=== PATIENT | female | born 1935 | race Caucasian/White ===

== ENCOUNTER 2017-08-15 14:59 | Outpatient (CLI) | payer MEDICARE, OTHER | END 2017-08-15 15:00 | disposition home or self-care (01) | LOC: BICMAMMO 14:59 | PROVIDERS: ATTEND Physician Assistant | DX: Z13.820 Encounter for screening for osteoporosis (principal); M81.0 Age-related osteoporosis without current pathological fracture | CPT/HCPCS: 77080 ==

== ENCOUNTER 2018-07-07 11:15 | Inpatient (IN) | payer MEDICARE, OTHER ==
[2018-07-07 12:20] LABS: Hemoglobin 12.1 g/dL (12.0-16.0); Mean Corpuscular HGB CONC 30.4 g/dL (32.0-36.0); Mean Corpuscular Volume 88.7 fL (78.0-98.0); Mean Platelet Volume 7.3 fL (7.4-10.4); Platelet Count 452 thou/uL (130-400); RBC Distribution Width 15.8 % (11.5-14.5); Red Blood Cell (RBC) Count 4.49 mill/uL (4.20-5.40); White Blood Cell (WBC) Count 26.9 thou/uL (4.8-10.8)
[2018-07-07 12:38] LABS: ALT (SGPT) 20 U/L (8-55); AST (SGOT) 22 U/L (5-34); Albumin 2.4 g/dL (3.4-4.8); Alkaline Phosphatase 148 U/L (40-150); Anion Gap 24 mmol/L (10-20); BUN (Urea Nitrogen) 104 mg/dL (9.8-20.1); Bilirubin, Total 0.5 mg/dL (0.2-1.2); Calc. Creatinine Clearance 0 mL/min (70-130); Calcium 8.3 mg/dL (7.8-10.44); Carbon Dioxide 14 mmol/L (23-31); Chloride 103 mmol/L (98-107); Estimated GFR-MDRD 24; Globulin 2.7 g/dL (2.4-3.5); Glucose 81 mg/dL (83-110); Potassium 5.4 mmol/L (3.5-5.1); Protein, Total 5.1 g/dL (6.0-8.3); Sodium 136 mmol/L (136-145)
[2018-07-07 12:51] LABS: Anisocytosis SLIGHT = 6-15 cells (100X) (0-5/hpf); Band 33 % (5-11); Hypochromia SLIGHT = 6-15 cells (100X) (0-5/hpf); Lymphocytes 1 % (21-51); MDiff Complete? YES; Monocytes 2 % (0-10); Neutrophil 64 % (42-75); Platelet Morphology Comment Appears Increased
[2018-07-07 14:10] LABS: Bilirubin Small (Negative); Blood, Urine Negative (Negative); Clarity CLEAR (Clear); Glucose, Urine (Dipstick) Negative (Negative); Leukocyte Negative (Negative); Nitrite Negative (Negative); Protein, Urine (Dipstick) Negative (Neg-Trace); Specific Gravity, Urine 1.019 (1.002-1.036); Urobilinogen 0.2 mg/dL (0.2-1.0)
--- NOTE | 2018-07-07 14:32 | RAD ---
CHEST 1 VIEW: Date: 07/07/18 HISTORY: Chest pain. Leukocytosis. FINDINGS: Cardiac silhouette is magnified by projection. Pulmonary vasculature is unremarkable. Mediastinum is midline with aortic calcification. Lungs are well inflated. No lobar consolidation or evidence of pne umothorax. IMPRESSION: 1. Atherosclerosis. 2. No active cardiopulmonary abnormalities are demonstrated. POS: [facility]
[2018-07-07] MEDS ORDERED: Ondansetron ODT 4 MG TAB PO PRN (16:45)
[2018-07-07] MEDS ORDERED: Acetaminophen 325 MG TAB PO PRN (16:45)
[2018-07-07] MEDS ORDERED: Bisacodyl 10 MG SUPP PR PRN (16:45)
[2018-07-07] MEDS ORDERED: Ondansetron PF 4 MG/2 ML Vial IVP PRN (16:45)
[2018-07-07] MEDS ORDERED: Sodium Chloride 0.9% 1,000 ML IV SCH (16:45)
[2018-07-07] MEDS ORDERED: Nystatin 100,000 Units/mL UDCUP SSW SCH (17:00)
[2018-07-07] MEDS ORDERED: Sodium Bicarbonate 75 MEQ in Sodium Chloride 0.45% 1,000 ML IV SCH (17:15)
--- NOTE | 2018-07-07 17:43 | HP ---
CHIEF COMPLAINT: Mouth sores and difficulty swallowing. HISTORY OF PRESENT ILLNESS: The patient is an 83-year-old female with past medical history significant for rheumatoid arthritis on methotrexate as well as hypothyroidism, who was brought in by relative due to difficulty eating or drinking associated with generalized weakness and inability to ambulate. The patient reportedly developed nausea, vomiting, and diarrhea since about 2 to 3 weeks, associated with poor oral intake and generalized weakness. In the last 1 week, the patient's symptoms of nausea, vomiting, and diarrhea have subsided, though she developed oral sores, which makes it impossible for her to eat. She had seen a physician at the Urgent Care and was prescribed fluconazole, which she had taken with some improvement, but she is still unable to eat or drink. In the last 24 hours, the patient got weaker and unable to get up, hence she was brought to the emergency room. She was noted to be very dry and dehydrated on presentation with tachycardia and was treated with IV fluid with some improvement. There is no history of fever. Chest pain, dysuria, hematuria, hematemesis, hematochezia, focal weakness, or leg swelling. PAST MEDICAL HISTORY: 1. Hypothyroidism. 2. Rheumatoid arthritis. PAST SURGICAL HISTORY: No prior surgery. SOCIAL HISTORY: The patient lives with the daughter. She does not smoke or drink alcohol or use recreational drugs. FAMILY HISTORY: Reviewed, but noncontributory. ALLERGIES: 1. AMOXICILLIN. 2. BACTRIM. 3. FLOXIN. 4. FOSAMAX. 5. LEVAQUIN. 6. MELOXICAM. 7. PENICILLIN G. 8. SULFACETAMIDE. 9. BENZATHINE. HOME MEDICATIONS: Include the followin. Methotrexate 2.5. 2. Hydrochloroquine. 3. Folic acid. 4. Levothyroxine. 5. Nexium. 6. Zetia. 7. Fenofibrate. 8. Aleve. 9. Aspirin. 10. Calcium plus vitamin D. 11. Fish oil. 12. CoQ10. 13. Multivitamin. REVIEW OF SYSTEMS: Twelve-point review of systems performed was negative, other than pertinent positives and negatives included in the history of present illness. PHYSICAL EXAMINATION: INITIAL VITAL SIGNS: On presentation showed BP 97/56, pulse 101, respiratory rate 18, temperature 97.7, and SpO2 of 95% on room air. Current vitals showed BP 115 /59, pulse 82, respiratory rate 14, SpO2 of 100% on room air. GENERAL: Clinically, ill-looking elderly female in no obvious distress. Afebrile, anicteric, acyanotic. HEENT: Normocephalic, atraumatic. Pupils are equal and reacting to light. Oral mucosa is dry. Lips are cracked. Tongue showed multiple shallow ulcers. NECK: Supple, nontender with full range of motion. CARDIOVASCULAR: Regular rhythm and rate with normal heart sounds 1 and 2. No murmur was appreciated. RESPIRATORY: Good air entry bilateral with no crackle or rhonchi or use of accessory muscles. GI: Abdomen is full, soft with mild diffuse tenderness. Bowel sound is normoactive. EXTREMITIES: Trace bilateral leg edema noted. Multiple hand deformities noted due to rheumatoid arthritis. SKIN: Dry, but appropriate for age with no obvious rash, petechiae, or erythema. NEUROLOGIC: Conscious, alert and oriented x3 with appropriate mental status. The patient has dysarthria and dysphonia due to dry mouth and ulcers. Cranial nerves 2 through 12 are intact. The patient moves all extremities. LABORATORY DATA: CBC showed WBC count of 26.9, hemoglobin of 12.1, platelet of 452. CMP showed sodium 136, potassium 5.4, chloride 103, CO2 of 14, anion gap 24, BUN 104, creatinine 1.99. Glucose 81, calcium 8.3, bilirubin 0.5, total protein 5.1 , albumin 2.4, globulin 2.7, alkaline phosphatase 148, AST 22, ALT 20. Initial troponin is 0.020. Urinalysis was unremarkable. EKG showed normal sinus rhythm with rate of 90. ST-segment was unremarkable, but there is T-wave inversion in inferior leads. ASSESSMENT: 1. Acute kidney injury: This most likely is due to severe dehydration from poor oral intake and increased GI output. 2. Hyperkalemia: Most likely due to acute kidney injury. 3. Anion gap metabolic acidosis. 4. Severe dehydration. 5. Multiple oral ulcers. 6. Oral thrush. 7. Physical deconditioning. 8. Moderate protein-calorie malnutrition. 9. Resolving acute gastroenteritis. 10. Hypothyroidism 11. Rheumatoid arthritis on plaquenil and methotrexate PLAN: 1. We will start the patient on IV fluid therapy with bicarb containing infusion. 2. We will start the patient on nystatin oral suspension. 3. We will also rule out acute myocardial infarction with serial troponin. 4. We will get serum magnesium and replete as needed. 5. Nutritional rehabilitation will be started with oral supplements. 6. DVT prophylaxis with Lovenox. 7. Diet as tolerated. 8. Code status full. 9. Daughter is the surrogate decision maker. 10. The patient is expected to stay in the hospital for more than 3 days. We will also consult Physical and Occupational Therapy. Job ID: [id number] [facility]
[2018-07-07] MEDS ORDERED: Famotidine 20 MG TAB ONE (21:09)
[2018-07-07] MEDS ORDERED: Nystatin 500,000 UNITS/5 ML UDCUP SSP SCH (23:30)
[2018-07-08 03:58] LABS: Hemoglobin 10.7 g/dL (12.0-16.0); Mean Corpuscular HGB CONC 29.7 g/dL (32.0-36.0); Mean Corpuscular Hemoglobin 26.5 pg (27.0-31.0); Mean Corpuscular Volume 89.3 fL (78.0-98.0); Mean Platelet Volume 7.2 fL (7.4-10.4); Platelet Count 380 thou/uL (130-400); Red Blood Cell (RBC) Count 4.02 mill/uL (4.20-5.40); White Blood Cell (WBC) Count 20.2 thou/uL (4.8-10.8)
[2018-07-08 04:12] LABS: ALT (SGPT) 17 U/L (8-55); AST (SGOT) 19 U/L (5-34); Albumin 2.1 g/dL (3.4-4.8); Alkaline Phosphatase 119 U/L (40-150); Anion Gap 20 mmol/L (10-20); BUN (Urea Nitrogen) 91 mg/dL (9.8-20.1); Bilirubin, Total 0.4 mg/dL (0.2-1.2); Calc. Creatinine Clearance 0 mL/min (70-130); Calcium 8.1 mg/dL (7.8-10.44); Carbon Dioxide 13 mmol/L (23-31); Chloride 113 mmol/L (98-107); Estimated GFR-MDRD 31; Glucose 79 mg/dL (83-110); Magnesium 2.3 mg/dL (1.6-2.6); Protein, Total 5.1 g/dL (6.0-8.3); Sodium 141 mmol/L (136-145)
[2018-07-08 05:22] LABS: Anisocytosis SLIGHT = 6-15 cells (100X) (0-5/hpf); Band 34 % (5-11); Hypochromia SLIGHT = 6-15 cells (100X) (0-5/hpf); Lymphocytes 5 % (21-51); MDiff Complete? YES; Monocytes 6 % (0-10); Neutrophil 55 % (42-75); Platelet Morphology Comment Appears Adequate
[2018-07-08] MEDS ORDERED: Sodium Bicarbonate 150 MEQ in Dextrose 5% in Water 1,000 ML IV SCH (06:45)
[2018-07-08] MEDS ORDERED: Enoxaparin Sodium 30 MG/0.3 ML SYRINGE ONE (09:55)
[2018-07-08 10:31] LABS: Creatinine, Urine 48.45 mg/dL (47-110); Sodium, Urine Less than 20 mmol/L (Not Available)
[2018-07-08] MEDS: Nystatin 500,000 UNITS/5 ML UDCUP SSW SCH (13:54)
[2018-07-08] MEDS: Famotidine 20 MG TAB PO SCH (13:54)
[2018-07-08] MEDS: Enoxaparin Sodium 30 MG/0.3 ML SYRINGE SC SCH (13:55)
[2018-07-08] MEDS: Nystatin 500,000 UNITS/5 ML UDCUP SSP SCH ×3 (13:56→21:00)
[2018-07-08] MEDS ORDERED: Metoprolol Tartrate 5 MG/5 ML VIAL IVP PRN (14:20)
[2018-07-08] MEDS ORDERED: Sodium Bicarbonate 50 MEQ in Sodium Chloride 0.45% 1,000 ML IV SCH (15:45)
--- NOTE | 2018-07-08 15:47 | PRG ---
DATE OF SERVICE: 07/08/2018 SUBJECTIVE: The patient is seen and examined at the bedside. She is doing significantly better. Her daughter is present in the room during my visit. She failed swallow studies done in the emergency room this morning. She does not have any nausea or vomiting. No diarrhea. She still has some abdominal pain. OBJECTIVE: VITAL SIGNS: Blood pressure is 138/65, pulse is 98, temperature is 98.4, respiratory rate 16, O2 saturation is 96% on room air. HEENT: Head is atraumatic and normocephalic. Eyes are sunk. Pupils are responding to light properly. Sclerae are nonicteric. Conjunctivae are somewhat palish. Oral mucosa is difficult to assess since she is barely able to open her mouth secondary to multiple oral and tongue ulcers. NECK: Supple. LUNGS: Clear. HEART: S1 and S2 normal. No S3. No S4. ABDOMEN: Tender to palpation in the lower parts of the abdomen and right upper quadrant. Bowel sounds are present. EXTREMITIES: No clubbing, cyanosis, or edema. NEUROLOGIC: She follows my commands. She moves her all four extremities, but she looks tired and exhausted. LABORATORY DATA: Labs showed white count of 20.2, hemoglobin 10.7, hematocrit 35.9, platelet count is 380, 34% of bands. Sodium of 141, potassium 5.0, chloride 113, CO2 of 13, BUN 91, creatinine 1.58. Total protein 5.1. Troponin I 0.02. Albumin 2.1. The rest of chemistry within normal limits. Urine creatinine 48.4. Urine sodium less than 20. IMPRESSION: 1. Acute gastroenteritis in the setting of immunocompromised patient. 2. Acute kidney injury. 3. Stomatitis, felt to be secondary to thrush. 4. Anion gap metabolic acidosis, most likely secondary to loss of bicarbonate with diarrhea. 5. Severe dehydration. 6. Physical deconditioning. 7. Hypothyroidism. 8. Rheumatoid arthritis, on methotrexate and Plaquenil. 9. Microbiology, no growth at 24 hours. DISCUSSION: The patient improved clinically since she got IV fluids. Her creatinine improved to 1.58 from 1.99 yesterday. She is still in metabolic acidosis, and her white count is still elevated at 20.2, although it is down from 26.9. She has still very elevated percentage of bands at 34. Continue on rehydration with addition of bicarb to replace her bicarb loss. We will get ID consult with Dr. Rizo. We will obtain CT of the abdomen and pelvis without IV contrast. We will continue nystatin, which is swish 4 times a day. We will continue Pepcid 20 mg twice a day IV piggy bag, and she failed her swallow studies. We will try to replace her fluids for now, and we will start her on PT and OT. Job ID: [id number]
--- NOTE | 2018-07-08 16:07 | CT ---
CT ABDOMEN AND PELVIS NONCONTRAST: Date: 07/08/18 HISTORY: Flank pain. FINDINGS: Each renal collecting system, ureter, and urinary bladder are decompressed without stone evident. Lack of contrast limits evaluation for other abnormalities. There is dense consolidation at the left posterior lung bases. Gallbladder is distended up to 10.2 cm. Stones are not visible on CT. There is prominent calcification throughout the arterial structures. Circumferential wall thickening of the en tirety of the colon with fluid layering throughout the mildly distended colon. At the left adnexa, a 3.9 cm cyst is present. Smaller cysts at the right adnexa. No free fluid is evident. IMPRESSION: 1. No CT evidence of urinary tract obstruction or calcification. 2. Pancolitis. Cause is not evident. Infectious? 3. Left ovarian cystic mass, 3.9 cm. 4. Consolidation at left posterior lung base. Pneumonitis versus atelectasis. 5. Atherosclerosis. POS: [facility]
[2018-07-08] MEDS ORDERED: Sodium Chloride 0.9% 10 ML ONE (16:27)
[2018-07-08] MEDS: MEROPENEM 1 GM/50 ML 1 GM in Premix Bag 1 BAG IVPB SCH (20:59)
[2018-07-08] MEDS ORDERED: Meropenem 1 GM in Sodium Chloride 0.9% 100 ML IVPB SCH (22:00)
[2018-07-09 01:33] LABS: Hemoglobin 9.7 g/dL (12.0-16.0); Mean Corpuscular HGB CONC 31.6 g/dL (32.0-36.0); Mean Corpuscular Hemoglobin 27.5 pg (27.0-31.0); Mean Corpuscular Volume 87.3 fL (78.0-98.0); Mean Platelet Volume 7.1 fL (7.4-10.4); Platelet Count 321 thou/uL (130-400); RBC Distribution Width 15.5 % (11.5-14.5); Red Blood Cell (RBC) Count 3.52 mill/uL (4.20-5.40); White Blood Cell (WBC) Count 13.7 thou/uL (4.8-10.8)
[2018-07-09 01:52] LABS: Band 17 % (5-11); Hypochromia SLIGHT = 6-15 cells (100X) (0-5/hpf); Lymphocytes 3 % (21-51); MDiff Complete? YES; Monocytes 14 % (0-10); Neutrophil 64 % (42-75); Platelet Morphology Comment Appears Adequate; Reactive Lymphocytes 2 % (0-10)
[2018-07-09 01:57] LABS: ALT (SGPT) 20 U/L (8-55); AST (SGOT) 20 U/L (5-34); Albumin 1.9 g/dL (3.4-4.8); Alkaline Phosphatase 98 U/L (40-150); Anion Gap 14 mmol/L (10-20); BUN (Urea Nitrogen) 63 mg/dL (9.8-20.1); Bilirubin, Total 0.5 mg/dL (0.2-1.2); Calc. Creatinine Clearance 38 mL/min (70-130); Calcium 7.9 mg/dL (7.8-10.44); Carbon Dioxide 23 mmol/L (23-31); Chloride 116 mmol/L (98-107); Estimated GFR-MDRD 59; Globulin 2.7 g/dL (2.4-3.5); Glucose 137 mg/dL (83-110); Potassium 3.9 mmol/L (3.5-5.1); Protein, Total 4.6 g/dL (6.0-8.3); Sodium 149 mmol/L (136-145)
[2018-07-09] MEDS: Dextrose 5% in Water 1,000 ML IV SCH ×2 (03:51→18:14)
[2018-07-09] MEDS: MEROPENEM 1 GM/50 ML 1 GM in Premix Bag 1 BAG IVPB SCH ×2 (03:51→13:36)
[2018-07-09] MEDS ORDERED: Digoxin 0.5 MG/2 ML AMP SLOW IVP SCH (08:30)
[2018-07-09] MEDS: Enoxaparin Sodium 30 MG/0.3 ML SYRINGE SC SCH (08:50)
[2018-07-09] MEDS: Pantoprazole 40 MG VIAL IVP SCH (08:50)
[2018-07-09] MEDS: Nystatin 500,000 UNITS/5 ML UDCUP SSP SCH (08:50)
--- NOTE | 2018-07-09 08:58 | RAD ---
CHEST 1 VIEW: HISTORY: Dysphagia. COMPARISON: Radiograph 07/07/2018. FINDINGS: Worsening left basilar airspace opacities. No pneumothorax. There is scaring in both lung apices. Extensive splenic artery calcifications. IMPRESSION: Left lower lobe airspace opacity concerning for infection. POS: [facility]
[2018-07-09] MEDS: Diltiazem 125 MG in Sodium Chloride 0.9% 100 ML IVPB SCH ×2 (09:42→09:50)
[2018-07-09] MEDS ORDERED: Diltiazem 125 MG in Sodium Chloride 0.9% 100 ML IVPB SCH ×2 (10:45→18:03)
[2018-07-09 11:33] LABS: Hemoglobin 10.2 g/dL (12.0-16.0); Mean Corpuscular Hemoglobin 26.7 pg (27.0-31.0); Mean Corpuscular Volume 86.1 fL (78.0-98.0); Mean Platelet Volume 7.7 fL (7.4-10.4); Platelet Count 336 thou/uL (130-400); RBC Distribution Width 15.6 % (11.5-14.5); Red Blood Cell (RBC) Count 3.82 mill/uL (4.20-5.40); White Blood Cell (WBC) Count 16.8 thou/uL (4.8-10.8)
[2018-07-09 11:41] LABS: Anion Gap 16 mmol/L (10-20); BUN (Urea Nitrogen) 59 mg/dL (9.8-20.1); Calc. Creatinine Clearance 42 mL/min (70-130); Calcium 7.6 mg/dL (7.8-10.44); Carbon Dioxide 21 mmol/L (23-31); Chloride 117 mmol/L (98-107); Estimated GFR-MDRD 65; Glucose 133 mg/dL (83-110); Potassium 4.4 mmol/L (3.5-5.1); Sodium 150 mmol/L (136-145)
[2018-07-09 12:07] LABS: Band 51 % (5-11); Hypochromia SLIGHT = 6-15 cells (100X) (0-5/hpf); Lymphocytes 6 % (21-51); MDiff Complete? YES; Metamyelocyte 1 % (0-0); Monocytes 3 % (0-10); Myelocyte 1 % (0-0); Neutrophil 37 % (42-75); Platelet Morphology Comment Appears Adequate; Polychromasia SLIGHT = 2-3 cells (100X) (0-2/hpf); Reactive Lymphocytes 1 % (0-10); Toxic Granulation SLIGHT; Vacuoles SLIGHT
--- NOTE | 2018-07-09 12:11 | CON ---
DATE OF CONSULTATION: PRIMARY CARE DOCTOR: Adi Mann MD PRIMARY MECHANICAL ENGINEERING TECHNICIAN: Maria G Adame MD REASON FOR CARDIOLOGY CONSULT: AFib with rapid ventricular response. HISTORY OF PRESENT ILLNESS: Ms. Rosenbaum is an 83-year-old female with a significant history of rheumatoid, osteoarthritis and hypothyroidism. Prior to this admission, the patient was very active. She could drive, do homemaking, and mowing yard outside. However, from June 22, she started having nausea, vomiting, and diarrhea. Nausea and vomiting had stopped the next day, however, she continued having diarrhea and could not hold the food and the fluids. She was getting more weaker. She saw Dr. Mann' PA at home on June 29. The patient was told that the patient's vital signs are stable. The patient was told that she had some stomach flu. However, on July 02, she started having blistering around her mouth, which extend to her throat within a couple of days. Since then, she could not eat or even drink due to pain in her mouth, so she went to [facility]. She was instructed to present to the emergency department for further evaluation and treatment. She was found to have a dehydration with low bicarb. Right now, she is on normal saline with bicarb with Protonix IV daily and nystatin 3 times a day with antibiotic. Around 6:30 this morning, the heart child monitor showed AFib with rapid ventricular response, heart rate went up to 180s to 190s, but she converted back to sinus rhythm around 8:30 before digoxin IV push was given. Prior to this admission or prior to the event of atrial fibrillation with rapid ventricular response this morning, the patient denies any chest pain, dizziness, lightheadedness, shortness of breath, discomfort of the chest, or any other cardiac complaint. According to the daughter, the patient never had a cardiac workup prior to this admission. PAST MEDICAL HISTORY: Hypothyroidism, rheumatoid arthritis, osteoarthritis. She follow up with Dr. Felix for the rheumatoid arthritis, she received steroid shot every 4 weeks. PAST SURGICAL HISTORY: She had a cataract surgery and fracture to the left foot long time ago. FAMILY HISTORY: There is no significant cardiac history in her family. SOCIAL HISTORY: She is a . She is living with her daughter. She denies smoking, EtOH, or illicit drug abuse. She drinks 2 cups of coffee a day and she drinks one large glass of water a day per daughter. Prior to this admission and prior to the nausea and diarrhea, she was very active and she usually is active on the advent, driving herself and mowing yard herself at home. ALLERGIES: PLEASE REFER TO THE PATIENT'S MEDICAL RECORD. HOME MEDICATIONS: 1. Plaquenil 200 mg twice a day. 2. Zetia 10 mg once a day. 3. Omeprazole 20 mg once a day. 4. Tylenol No. 3 one tablet every 6 hours as needed. 5. Coenzyme 100 mg once a day. 6. Wallback-3 of 1000 mg once a day. 7. Multivitamin once a day. 8. Cranberry 400 mg once a day. 9. Aspirin 81 mg once a day. 10. Aleve 220 mg twice a day as needed. 11. Fenofibrate 160 mg once a day. 12. Folic acid 1 mg once a day. 13. Levothyroxine 125 mcg once a day. 14. Calcium D3. REVIEW OF SYSTEMS: Twelve-point review of systems negative unless otherwise mentioned in the HPI. PHYSICAL EXAMINATION: VITAL SIGNS: Blood pressure 111/55, temperature 98.6, pulse is 70s to 80s with sinus rhythm, respiratory rate 16, and O2 sat 99% with room air. GENERAL: The patient is alert and oriented x4. The patient is really lethargic at this moment, but not in acute distress. HEENT: Normocephalic, atraumatic. Eyes; extraocular muscle movement intact. ENT and mouth; oral mucosa is dry around her mouth due to the infection. Nasal mucosa moist without lesion. NECK: Supple. Limited range of motion of the neck due to rheumatoid arthritis. RESPIRATORY: Clear to auscultate bilaterally, diminished at bases. CARDIOVASCULAR: At this moment, regular rate and rhythm. Normal S1, and S2. There are no S3 or S4. No significant murmur, hives, or thrill noted. 2+ pulses in bilateral upper and lower extremities. Mild edema to the right lower extremity. Carotid pulses are present without bruit or thrill noted. ABDOMEN: Soft, but tender to palpitate. Bowel sounds are present. SKIN: Warm and dry. No significant bruise, rash, or erythema noted. MUSCULOSKELETAL: The patient able to move all extremities, but however, the patient is really weak. PSYCHIATRIC: The patient's mood is appropriate, but so lethargic at this moment. NEUROLOGIC: The patient is alert and oriented x4, nonfocal. LABORATORY DATA: WBC is 13.7, hemoglobin 9.7, and hematocrit 30.8. Sodium of 149, potassium of 3.9, BUN 63, creatinine 0.91, AST 20, and ALT 20. Troponins 0.020 x2. UA is negative. A 12-lead EKG at the ER shows sinus rhythm with heart rate 90, no significant ST-segment change. T-wave inversion in lead II, lead III, and lead aVF and also V5 and V6. No previous EKG in the record to compare. The patient's chest x-ray shows left lower lobe airspace opacity concerning for infection. ASSESSMENT AND PLAN: 1. Atrial fibrillation with rapid ventricular response. At this moment, the patient was converted back to sinus rhythm. After 2 hours of atrial fibrillation with rapid ventricular response without Cardizem drip or digoxin IV push. She has beta- keyur IV push p.r.n. at this moment. She cannot tolerate p.o. at this moment due to the infection in her mouth, stomatitis. We would like to continue to monitor on the telemetry. At this moment, we would like to order echocardiogram for further evaluation. 2. Inferior T-wave inversion. We would like to continue to monitor on the telemetry at this moment. At this moment, the patient does not have any cardiac complaints. 3. Severe dehydration, which is managed by primary care doctor. 4. Hypothyroidism, which is managed by primary care doctor. 5. Acute gastroenteritis. The patient under contact isolation at this moment because of Clostridium difficile. 6. Severe stomatitis. She is on a medication, which is improving her symptom per daughter and managed by primary care doctor. Thank you for allowing the Cardiology Service to participate in the care of this patient. We will follow along the patient's care team and make further recommendations as appropriate. Job ID: [id number] [facility]
[2018-07-09] MEDS: Nystatin 500,000 UNITS/5 ML UDCUP SSW SCH ×3 (13:39→20:31)
--- NOTE | 2018-07-09 13:39 | CON ---
DATE OF CONSULTATION: 07/09/2018 INDICATION FOR CONSULTATION: This is an elderly 83-year-old female with dehydration, diarrhea, overall deconditioning, and atrial fibrillation with rapid ventricular response. HISTORY OF PRESENT ILLNESS: This is a very unfortunate 83-year-old female, who has had some diarrhea for over a week now. It actually started back at the end of May. She has been feeling on and off and she then developed thrush in the mouth and was unable to eat. She has been on medications for this, but this has finally started to get better, but she continued to have diarrhea. She became more dehydrated. She presented to an outpatient facility or to the urgent care center, was advised to be seen in the emergency room where she was seen, started on IV fluids, and was admitted due to significant dehydration and possible pneumonia. At this time, we were seeing her due to atrial fibrillation. She developed this in the hospital with rapid ventricular response. She has had no previous history of this that I am aware of. At this time, she denied any chest pain, but when she gets atrial fibrillation, she becomes very rapid with heart rate up to 150s to 160s, but she denied any chest pain and is actually relatively asymptomatic with the atrial fibrillation. PAST MEDICAL HISTORY: Significant for rheumatoid arthritis, hypothyroidism. She has been pretty healthy. She has been doing up and round and driving and taking care of her great grandkids and grandchildren up until she got sick with diarrhea. SOCIAL HISTORY: She continues to live with family. She has no history of alcohol or tobacco abuse. FAMILY HISTORY: Noncontributory. REVIEW OF SYSTEMS: Please refer to the notes dictated by my nurse practitioner. ALLERGIES: SHE HAS AN EXTENSIVE LIST. ALSO PLEASE REFER TO THOSE LISTED IN THE CHART. SHE IS ALLERGIC TO FLOXIN, BACTRIM, AMOXICILLIN, LEVAQUIN, FOSAMAX, MELOXICAM, PENICILLIN G, BENZATHINE, AND SULFACETAMIDE. MEDICATIONS: Prior to admission included: 1. Hydroxychloroquine. 2. Methotrexate. 3. Folic acid. 4. Levothyroxine. 5. Zetia. 6. Nexium. 7. Fenofibrate. 8. Aspirin. 9. Aleve. 10. Calcium plus vitamin D. 11. Fish oil. 12. CoQ10. 13. Multivitamins. REVIEW OF SYSTEMS: Her 12-point review of systems, please refer the notes dictated by the nurse practitioner. Also, family did tell me that she recently underwent a colonoscopy by Dr. Messer and was found to have, I believe, some small polyps. Previously, she had a test, which was unremarkable. PHYSICAL EXAMINATION: GENERAL: Reveals a very thin, emaciated-appearing female. She is alert and oriented however. VITAL SIGNS: Her blood pressure is 111/55, heart rate is anywhere between 90s to 180s, respiratory rate 16, O2 saturations 99% to 100% on room air. She is afebrile. HEENT: Shows the head to be normocephalic and atraumatic. NEC: Her carotid pulses are present. I did not hear any significant bruits. CHEST: Actually, she had decreased breath sounds. I do not hear any significant rales, rhonchi, or wheezing at this time. She does have occasional cough. GI: Very soft and slightly tender. Bowel sounds are hypoactive with minimal bowel sounds, but there was no tympany noted. CARDIOVASCULAR: Reveals irregular rhythm, somewhat tachycardic. EXTREMITIES: She had no significant lower extremity edema. She had minimal ankle edema on the right leg, but otherwise is unremarkable. NEUROLOGIC: The patient appears to be relatively intact for her age, but does appear to be significantly weak. SKIN: Warm and dry. DIAGNOSTIC DATA: EKG originally showed a normal sinus rhythm, but at that time shows atrial fibrillation with a rapid ventricular response. Her cardiac enzymes are unremarkable. LABORATORY DATA: Showed a WBC of 26,000 two days ago, has now decreased down to 20,000 and today was 13.7 with a hemoglobin of 9.7 and on admission, she was 12.1, most likely this was due to dehydration. She has continued to get IV fluids. Hematocrit was 30.8. She had 17 bands and previously had 33 bands on admission, appears to be septic, uncertain of the etiology of the diarrhea. Sodium was 149 , again indicative of her dehydration; chloride was 116; BUN was 63 with a creatinine 0.91 and on admission, it was 91 and 1.58 for the creatinine. Blood sugar is 137. Her albumin is low at 1.9. At this time, we will ask that she undergo some type of a catheter placement for the urine, so that we can obtain a stool specimen to determine whether or not, she has any C. diff or any other GI etiology for the diarrhea. From a cardiac standpoint, would advise we give her digoxin for the lowering of the heart rate and possibly add diltiazem if possible to control the heart rate with the atrial fibrillation. Once she has recovered from possible pneumonia or this infectious etiology from the diarrhea, then we can proceed with further workup for her. From a cardiac standpoint, we will obtain an echocardiogram for evaluation of the left ventricular systolic function as well as chamber dimensions. At this time, she is not a very good candidate for antiarrhythmics except for rate control at this time since she is going in and out of atrial fibrillation, we can always try perhaps low-dose, so we can try Multaq and see whether or not, she would tolerate this medication, but at this time, I would rather just rate control and continue her other medications if at all possible. Further recommendations will depend on the results of the echocardiogram and whether or not, she has any etiology also for infection and renal function. At this time, she appears to be more of an infectious etiology and the underlying problem will need to be addressed. ASSESSMENT AND PLAN: 1. Atrial fibrillation. We will control the heart rate. 2. Some type of diarrhea, probable infectious etiology and will need to be evaluated to determine the etiology of this. 3. Elevated WBC and bands compatible with probable sepsis or significant gastrointestinal etiology for infectious process. Overall, she actually does not appear to be septic, but will need to follow this very carefully. Job ID: [id number] [facility]
[2018-07-09] MEDS: metroNIDAZOLE 500 MG in Premix Bag 1 BAG IVPB SCH ×2 (14:35→21:47)
[2018-07-09] MEDS: Digoxin 0.5 MG/2 ML AMP SLOW IVP SCH ×2 (14:38→20:30)
[2018-07-09] MEDS ORDERED: Vancomycin HCl 25 MG/ML Oral PO SCH ×2 (15:00→17:00)
--- NOTE | 2018-07-09 16:36 | CON ---
DATE OF CONSULTATION: 07/09/2018 CHIEF COMPLAINT: Mouth ulcers, diarrhea, and severe weakness. HISTORY OF PRESENT ILLNESS: Ms. Rosenbaum is an 83-year-old woman who was previously healthy, living with her daughter and driving and taking care of herself. Around four weeks ago, she had an outpatient colonoscopy with a polyp removed. This was done due to a family history of colon cancer and prior history of personal colon polyps. Around two weeks ago, she developed onset of diarrhea. She was evaluated by primary care and felt to have an acute infectious, possibly viral gastroenteritis and no further intervention was performed at that point. She subsequently developed painful mouth ulcers and ongoing diarrhea. She went to primary care and our [facility] and was diagnosed with fungal thrush. She was treated with fluconazole. She took that for 3 days and the symptoms however continued. She went back to primary care and this time again, the tongue was noted to be swollen with ongoing ulcers and she was dehydrated and weak and she was sent to the emergency room for further care day before yesterday. She was noted to have elevated creatinine and severe dehydration. Her diarrhea had actually stopped for a few days prior to admission. She had one liquidy stool yesterday and one liquidy stool this morning. She has been on Plaquenil and methotrexate for rheumatoid arthritis. PAST MEDICAL HISTORY: Hypothyroidism, rheumatoid arthritis, colon polyps, and gastroesophageal reflux. FAMILY HISTORY: Positive for colon cancer. PAST SURGICAL HISTORY: Colonoscopy with polypectomy. SOCIAL HISTORY: No alcohol, tobacco, or drugs. She lives at home with her daughter and was independent and active prior to hospitalization. ALLERGIES: AMOXICILLIN, BACTRIM, FOSAMAX, LEVOFLOXACIN, MELOXICAM, PENICILLIN, SULFACETAMIDE, AND BENZATHINE. MEDICATIONS: Prior to admission include methotrexate, hydroxychloroquine, folic acid, levothyroxine, Nexium, Zetia, fenofibrate, Aleve, aspirin, calcium, fish oil, CoQ10, and multiple vitamin. REVIEW OF SYSTEMS: Negative x10 systems reviewed except as stated in the history of present illness. Communication is mostly through her daughter given that she has severe oral pain with the mouth ulcers and tongue ulcers. PHYSICAL EXAMINATION: VITAL SIGNS: Temperature 98.0, pulse 99, and blood pressure 106/51. GENERAL: She is in no acute distress. She appears weak and she is oriented x3. HEENT: Her eyes have no scleral icterus. Oropharynx has very dry mucous membranes with dry secretions on the back of her tongue. She has ulcers on her tongue. She has no cervical or supraclavicular lymphadenopathy. LUNGS: Clear to auscultation bilaterally. HEART: Regular rate and rhythm without murmur. ABDOMEN: Soft. She is tender diffusely in the lower abdomen without guarding. Bowel sounds are present. EXTREMITIES: No lower extremity edema. Cranial nerves are grossly intact. LABORATORY DATA: Sodium 150, potassium 4.4, chloride 117, CO2 of 21, BUN 59, creatinine 0.84, and bilirubin 0.5. AST 20, ALT 20, alkaline phosphatase 98, and albumin 1.9. IMAGING: CT scan of the abdomen and pelvis yesterday showed circumferential wall thickening throughout the entire colon with a mildly distended colon. IMPRESSION: 1. Pancolitis with history highly suggestive of Clostridium difficile colitis. Certainly has severe colitis with white blood cell count at 16.8 and albumin of 1.9 and atrial fibrillation with RVR initially and acute renal failure. Clinically, she is somewhat improved with rehydration. 2. Mouth ulcers. This does not appear to be obvious fungal infection. Given her immunosuppression, this could be a stomatitis secondary to methotrexate or viral infection such as HSV. She has been evaluated by Dr. Rizo and reports the mouth swab was done. RECOMMENDATIONS: 1. Agree with empiric treatment for Clostridium difficile colitis. Stool studies have been requested. Both IV metronidazole plus oral vancomycin four times daily. 2. Hold aspirin and naproxen. 3. Hold methotrexate and hydroxychloroquine for now. 4. We will continue to follow her clinical response. If she fails to improve, then endoscopy could be considered to evaluate for ulcerations further into the esophagus or colon, which could be same with CMV or HSV. Job ID: [id number]
--- NOTE | 2018-07-09 20:03 | CON ---
DATE OF CONSULTATION: 07/09/2018 REASON FOR CONSULTATION: Stomatitis. HISTORY OF PRESENT ILLNESS: An 83-year-old, who has a history of rheumatoid arthritis, on methotrexate and hydroxychloroquine; hypothyroidism; who has developed severe stomatitis for the past 2 weeks, initially treated as Lydia stomatitis without improvement. She also has developed nausea and diarrhea. She became volume depleted and has been admitted. Initial exam showed BP 97/56, pulse 101, respiratory rate 18, temperature 97.7, and O2 saturations 95%. Appeared chronically with wasting syndrome, stomatitis which is described below. Lungs were clear. Abdomen was soft with mild diffuse tenderness. Sodium 136, BUN 104, creatinine 1.99, bilirubin 0.5, protein 5.1, albumin 2.4, alkaline phosphatase 148, AST 22, ALT 20. Initial impression was acute kidney injury, hyperkalemia, volume depletion, oral ulcers, rheumatoid arthritis. She has been given meropenem, IV fluids, nystatin. Currently, she has still quite a bit of pain in the mouth and unable to swallow properly. She has had one episode of loose stool earlier. No headaches. No visual symptoms. No back pain. No abdominal pain. No chest pain. No cough or sputum production. She is urinating on her own without dysuria. Chronic joint symptoms are unchanged. PAST MEDICAL HISTORY: Includes long-standing rheumatoid arthritis, hypothyroidism. PAST SURGICAL HISTORY: Negative. SOCIAL HISTORY: Lives with daughter. Never smoker. Quite independent with all her activities of daily living, still driving, still mowing the lawn until this illness developed. ALLERGIES: AMOXICILLIN, BACTRIM, FOSAMAX, LEVAQUIN, MELOXICAM, PENICILLIN G. CURRENT MEDICATIONS: Have been discussed, at home, she was on; 1. Methotrexate. 2. Hydroxychloroquine. 3. Folic acid. 4. Levothyroxine. 5. Nexium. 6. Zetia. 7. Fenofibrate. 8. Aleve. 9. Aspirin. 10. Fish oil. 11. Vitamins. PHYSICAL EXAMINATION: VITAL SIGNS: T-max 98.8, blood pressure 115/59, pulse 99, respirations 16, and O2 saturations 98%. SKIN: Mild erythema in the back area and intergluteal region. The patient has no lymphadenopathy. HEENT: Some temporal wasting. Ocular movements are conjugate. Oral cavity with numerous shallow ulcerations throughout the tongue and lateral aspect of the oral cavity. Still quite a few teeth in place, they are displaced sort of backwards, but there is some decay and pigmentation of the enamel. No jugular vein distention. LUNGS: Symmetric air entry without crackles or wheezing. CARDIAC: S1 and S2, regular rate without murmurs. ABDOMEN: Soft. Not distended or tender. No ascites. No bladder distention. MUSCULOSKELETAL: Deformity of joints with subluxation of the MCPs in the right and left hands from her rheumatoid arthritis. Pulses 1+ in dorsalis pedis. No edema. Plantar response are flexor. No clonus. NEUROLOGIC: She is awake, oriented, follows commands. LABORATORY DATA: White cell count was 26,000 now is at 16.8; hemoglobin 10; platelets 336, with 51% bands and 37% neutrophils. Sodium 150, creatinine 0.84. Urinalysis fairly unremarkable. Urine culture, no growth for [address] and pelvis [address] demonstrates pancolitis. There is a consolidation in left posterior lung base, it is very mild. ASSESSMENT: 1. Stomatitis. 2. Pancolitis. 3. Rheumatoid arthritis, on methotrexate and hydroxychloroquine. DISCUSSION: The differential diagnosis for the stomatitis includes herpes simplex stomatitis is the more likely scenario. Drug-induced stomatitis is another possibility. Enterovirus stomatitis, less likely. Lydia albicans stomatitis unlikely. Check HSV DNA PCR. Regarding colitis, C difficile colitis is the more likely scenario versus ischemic colitis which is less likely. Start Flagyl and oral vancomycin. Discontinue Merrem and submit C diff stool. Job ID: [id number]
[2018-07-09] MEDS: Vancomycin HCl 25 MG/ML Oral PO SCH (20:31)
[2018-07-10] MEDS: Dextrose 5% in Water 1,000 ML IV SCH ×2 (05:52→17:03)
[2018-07-10] MEDS: metroNIDAZOLE 500 MG in Premix Bag 1 BAG IVPB SCH ×3 (05:52→20:20)
[2018-07-10 05:57] LABS: #Lymphocytes 1.1 thou/uL (1.20-3.40); #Monocytes 1.3 thou/uL (0.11-0.59); #Neutrophils 10.6 thou/uL (1.40-6.50); %Eosinophils 0.1 % (0.0-10.0); %Lymphocytes 8.8 % (21.0-51.0); %Monocytes 9.9 % (0.0-10.0); %Neutrophils 81.2 % (42.0-75.0); Hemoglobin 9.7 g/dL (12.0-16.0); Mean Corpuscular Hemoglobin 26.6 pg (27.0-31.0); Mean Corpuscular Volume 88.8 fL (78.0-98.0); Mean Platelet Volume 7.3 fL (7.4-10.4); Platelet Count 268 thou/uL (130-400); RBC Distribution Width 15.8 % (11.5-14.5); Red Blood Cell (RBC) Count 3.63 mill/uL (4.20-5.40); White Blood Cell (WBC) Count 13.1 thou/uL (4.8-10.8)
[2018-07-10] MEDS: Nystatin 500,000 UNITS/5 ML UDCUP SSW SCH ×4 (08:54→20:20)
[2018-07-10] MEDS: Pantoprazole 40 MG VIAL IVP SCH (08:54)
[2018-07-10] MEDS: Digoxin 0.125 MG TAB PO SCH (08:55)
[2018-07-10] MEDS: Vancomycin HCl 25 MG/ML Oral PO SCH ×4 (08:55→20:20)
[2018-07-10] MEDS: Enoxaparin Sodium 30 MG/0.3 ML SYRINGE SC SCH (08:56)
[2018-07-10] MEDS ORDERED: Vancomycin HCl 25 MG/ML Oral PO SCH (09:00)
[2018-07-10] MEDS ORDERED: Pancrelipase DR 12000 1 CAP PER TUBE PRN (10:00)
[2018-07-10] MEDS ORDERED: Sodium Bicarbonate Tab 325 MG TAB PER TUBE PRN (10:01)
[2018-07-10] MEDS ORDERED: Diltiazem 125 MG in Sodium Chloride 0.9% 100 ML IVPB SCH (10:13)
--- NOTE | 2018-07-10 10:13 | PDOC.CTH ---
Cardiology Progress Note - Subjective The pt seen and examined. No overnight events. No cardiac complaints. She has been tolerating ice chips. - Objective Vital Signs Temp Pulse Resp BP Pulse Ox 07/10/18 08:55 65 07/10/18 07:30 97.4 F L 65 18 105/52 L 96 07/10/18 03:52 97.8 F 77 16 94/52 L 99 07/10/18 00:00 109 H 98/53 L Admit Weight 112 lb 11.2 oz Weight 114 lb 07/09/18 07/10/18 07/11/18 06:59 06:59 06:59 Intake Total 1350 2077.4 Output Total 640 625 Balance 710 1452.4 - Physical Examination General/Neuro: alert & oriented x3 Neck: no JVD present Lungs: other: (diminished at bases) Heart: RRR Abdomen: soft Extremities: other: (No edema) - Telemetry Telemetry Rhythm: SR - Labs Result Diagrams: 07/10/18 05:09 07/09/18 10:35 Troponin/CKMB Troponin I 0.020 ng/mL (< 0.028) 07/07/18 21:22 - Assessment/Plan 1. New onset AFib with RVR - Converted back to SR around 0300 on 07/10/2018; On Diltiazem 5mg/h, which will be decreased to 2.5mg/h due to hypotensive; No OAC or ASA for now due to high risk of GI bleed 2/2 colitis. Cont. to monitor on tele. 2. Severe dehydration - improving; on D5W @ 100ml/h now for hyper natremia; the pt is more alerted today 3. Stomatitis - managed by ID/PCP 4. Colitis - less diarrhea this AM; managed by GI 5. Hypothyroidism 6. RA Pt. seen and eval. by me. I agree with the A/P by the NURSING TECHNICIAN. Chest clear. RRR. Echo : see report. EF: 55-60%, severe TR, Moderate MR, ( YOLANDA 1.44cm2 ), moderate LAE. cardiac status is stable at this time. Review of Systems - Review of Systems Constitutional: reports: no symptoms reported EENTM: reports: no symptoms reported Respiratory: reports: no symptoms reported Cardiac (ROS): reports: no symptoms reported ABD/GI: reports: no symptoms reported : reports: no symptoms reported Musculoskeletal: reports: no symptoms reported
--- NOTE | 2018-07-10 16:28 | PRG ---
DATE OF SERVICE: 07/10/2018 SUBJECTIVE: Still with quite a bit of stomatitis. She has an NG tube in for feeding. No chest pain. No abdominal pain or diarrhea. OBJECTIVE: VITAL SIGNS: Temperature has been normal, BP 101/49. GENERAL: Awake. MOUTH: Oral cavity still with ulcerated lesions in the tongue in lateral aspect. LUNGS: Clear. HEART: S1, S2. Regular rate. ABDOMEN: Soft, not distended. LABORATORY DATA: White cell count 13.1, hemoglobin 9.7, platelets 268, 81% neutrophils. Sodium 150, creatinine 0.84. ASSESSMENT AND DISCUSSION: 1. 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 2. Pancolitis, probably due to C difficile. 3. Rheumatoid arthritis, on methotrexate and hydroxychloroquine. 4. The other possibility would be Crohn disease, which can manifest in various parts of the oral cavity and gastrointestinal tract, it is less likely. If the HSV results do not show any positivity, then we will have to consider biopsy of the oral lesions or colonoscopy for diagnostic purpose. We will start acyclovir. Continue C diff treatment. Job ID: [id number]
[2018-07-10] MEDS: ACYCLOVIR SODIUM IVPB SCH (17:15)
[2018-07-10] MEDS: SODIUM CHLORIDE 0.9% IVPB SCH (17:15)
--- NOTE | 2018-07-10 22:41 | PRG ---
DATE OF SERVICE: 07/10/2018 SUBJECTIVE: Ms. Rosenbaum is feeling better today. She has an NG tube in place and is tolerating tube feeds through that at a slow rate and this is being advanced. Her mouth ulcers are showing clinical improvement as far as her discomfort and pain goes. She is much more alert today. She has had no stool output today. OBJECTIVE: VITAL SIGNS: Temperature 97.8, pulse 68, blood pressure 101/49. GENERAL: She is in no acute distress. Awake and alert. LUNGS: Clear to auscultation bilaterally. HEART: Regular rate and rhythm without murmur. ABDOMEN: Her abdomen is soft. She does have lower abdominal tenderness without guarding. Bowel sounds are present. EXTREMITIES: No lower extremity edema. LABORATORY DATA: White blood cell count 13.1, hemoglobin 9.7, platelets 268. Creatinine 0.84. IMPRESSION: 1. Stomatitis. Viral ulcerations are suspected. She has been started on acyclovir. Clinically, she is doing better today than she was yesterday. 2. Evidence of pancolitis by CT scan and diarrhea prior to admission. She has been started on vancomycin orally empirically along with metronidazole IV. She has had no stool output today to be able to provide a stool sample to confirm C diff. I would continue to treat her empirically. Her white blood cell count is coming down with hydration and antibiotics. Her antibiotics have been tapered for the C diff. 3. Severe protein malnutrition. She has an NG tube in place and is receiving tube feeds. Her mouth ulcers improved, then she can transition back to oral intake. 4. Of note, she did just have a colonoscopy a month ago on 06/12/2018. She is noted to have diverticulosis and a couple of small adenomas and no inflammatory changes at that time. RECOMMENDATIONS: 1. Continue vancomycin orally. 2. We will see how she responds to the acyclovir and await culture sent by Dr. Rizo or swab sent by Dr. Rizo. Job ID: [id number]
[2018-07-11] MEDS: SODIUM CHLORIDE 0.9% IVPB SCH ×3 (02:33→17:33)
[2018-07-11] MEDS: ACYCLOVIR SODIUM IVPB SCH ×3 (02:33→17:33)
[2018-07-11] MEDS: Dextrose 5% in Water 1,000 ML IV SCH ×3 (02:34→23:03)
[2018-07-11 05:18] LABS: Anion Gap 10 mmol/L (10-20); BUN (Urea Nitrogen) 33 mg/dL (9.8-20.1); Calc. Creatinine Clearance 49 mL/min (70-130); Calcium 7.5 mg/dL (7.8-10.44); Carbon Dioxide 21 mmol/L (23-31); Chloride 109 mmol/L (98-107); Estimated GFR-MDRD 76; Glucose 129 mg/dL (83-110); Potassium 4.2 mmol/L (3.5-5.1); Sodium 136 mmol/L (136-145)
[2018-07-11] MEDS: metroNIDAZOLE 500 MG in Premix Bag 1 BAG IVPB SCH ×4 (05:40→21:07)
[2018-07-11 05:52] LABS: Band 35 % (5-11); Eosinophils 2 % (0-10); Hemoglobin 9.8 g/dL (12.0-16.0); Lymphocytes 7 % (21-51); MDiff Complete? YES; Mean Corpuscular HGB CONC 29.8 g/dL (32.0-36.0); Mean Corpuscular Hemoglobin 26.4 pg (27.0-31.0); Mean Corpuscular Volume 88.5 fL (78.0-98.0); Mean Platelet Volume 7.6 fL (7.4-10.4); Monocytes 9 % (0-10); Neutrophil 47 % (42-75); Platelet Count 260 thou/uL (130-400); RBC Distribution Width 15.6 % (11.5-14.5); Red Blood Cell (RBC) Count 3.72 mill/uL (4.20-5.40); White Blood Cell (WBC) Count 15.1 thou/uL (4.8-10.8)
--- NOTE | 2018-07-11 08:13 | RAD ---
SINGLE VIEW CHEST: Date: 07/11/18 COMPARISON: 07/09/18. HISTORY: Pneumonia. FINDINGS: Single vie of the chest shows normal sized cardiomediastinal silhouette. A veil-like opacity in the i nferior aspect of the left thorax may represent a pleural effusion. A NG tube is seen in the stomach. IMPRESSION: Left pleural effusion. POS: [facility]
--- NOTE | 2018-07-11 09:41 | PDOC.CTH ---
Cardiology Progress Note - Subjective The pt seen and examined. No overnight events. No cardiac complaints. She complains of less energy today than yesterday. - Objective Vital Signs Temp Pulse Resp BP Pulse Ox 07/11/18 04:00 96.8 F L 69 20 99/51 L 98 07/11/18 00:00 77 107/57 L Admit Weight 112 lb 11.2 oz Weight 119 lb 07/10/18 07/11/18 07/12/18 06:59 06:59 06:59 Intake Total 2077.4 3316.4 Output Total 625 650 Balance 1452.4 2666.4 - Physical Examination General/Neuro: alert & oriented x3 Neck: no JVD present Lungs: other: (diminished at bases) Heart: RRR Abdomen: soft Extremities: other: (No edema) - Telemetry Telemetry Rhythm: SR - Labs Result Diagrams: 07/11/18 04:45 07/11/18 04:46 Troponin/CKMB Troponin I 0.020 ng/mL (< 0.028) 07/07/18 21:22 - Assessment/Plan 1. New onset AFib with RVR - Converted back to SR around 0300 on 07/10/2018; On Diltiazem 2.5mg/h, which will be changed to PO Diltiazem 120mg qd from today. No OAC or ASA for now due to high risk of GI bleed 2/2 colitis. Cont. to monitor on tele. 2. Severe dehydration - improving; on D5W @ 100ml/h now for hyper natremia; the pt is more alerted today 3. Stomatitis - managed by ID/PCP 4. Colitis - less diarrhea this AM; managed by GI 5. Hypothyroidism 6. RA MAR reviewed * Echo on 06/12/2018: EF: 55-60%, severe TR, mod MR and ( YOLANDA 1.44cm2 ), mod LAE, mild MS. Pt. seen and eval. by me. I agree with the A/P by the STEM ROLLER. Stools neg. for C.Diff.thus far. Chest clear. RRR. Review of Systems - Review of Systems Constitutional: reports: weakness EENTM: reports: no symptoms reported Respiratory: reports: no symptoms reported Cardiac (ROS): reports: no symptoms reported ABD/GI: reports: no symptoms reported : reports: no symptoms reported
[2018-07-11] MEDS ORDERED: Diltiazem 125 MG in Sodium Chloride 0.9% 100 ML IVPB SCH (09:42)
[2018-07-11] MEDS: Vancomycin HCl 25 MG/ML Oral PO SCH ×4 (10:05→20:28)
[2018-07-11] MEDS: Pantoprazole 40 MG VIAL IVP SCH (10:07)
[2018-07-11] MEDS: Digoxin 0.125 MG TAB PO SCH (10:08)
[2018-07-11] MEDS: Nystatin 500,000 UNITS/5 ML UDCUP SSW SCH ×4 (10:08→20:28)
[2018-07-11] MEDS: Enoxaparin Sodium 30 MG/0.3 ML SYRINGE SC SCH (10:08)
--- NOTE | 2018-07-11 19:21 | PRG ---
DATE OF SERVICE: 07/11/2018 SUBJECTIVE: Ms. Rosenbaum has improvement in her discomfort with her mouth ulcers. She has NG tube in place, receiving tube feeds. OBJECTIVE: VITAL SIGNS: Temperature 96.8, pulse 77, blood pressure 104/52. GENERAL: She is in no acute distress. She is awake and alert. LUNGS: Clear to auscultation bilaterally. HEART: Regular rate and rhythm. ABDOMEN: Soft. She has mild tenderness in lower abdomen without guarding. Bowel sounds are present. EXTREMITIES: No lower extremity edema. LABORATORY DATA: White blood cell count 15.1, hemoglobin 9.8, platelets 260. Creatinine 0.73. IMPRESSION: 1. Diffuse colitis. Stool was negative for Clostridium difficile. However, this is a couple of days after having been on treatment. I would complete a 10-day course of the vancomycin at this point. 2. Stomatitis with possible viral ulcerations. Further studies on the swabs are pending. She is on acyclovir at this point. 3. Severe protein malnutrition, on NG tube feeds. RECOMMENDATIONS: 1. Continue vancomycin for now. 2. Send additional stool studies. However, this could be limited considering were several days in her hospitalization. She did have 3 to 4 liquidy stools today. Job ID: [id number]
[2018-07-11 22:08] LABS: HSV 2 - DNA Negative (Negative)
[2018-07-12] MEDS: SODIUM CHLORIDE 0.9% IVPB SCH ×3 (01:01→18:17)
[2018-07-12] MEDS: ACYCLOVIR SODIUM IVPB SCH ×3 (01:01→18:17)
[2018-07-12] MEDS: metroNIDAZOLE 500 MG in Premix Bag 1 BAG IVPB SCH ×3 (05:06→21:07)
[2018-07-12 06:30] LABS: #Eosinphils 0.1 thou/uL (0.0-0.7); #Lymphocytes 1.4 thou/uL (1.20-3.40); #Monocytes 1.9 thou/uL (0.11-0.59); #Neutrophils 9.3 thou/uL (1.40-6.50); %Basophils 0.2 % (0.0-1.0); %Eosinophils 1.1 % (0.0-10.0); %Lymphocytes 11.2 % (21.0-51.0); %Monocytes 14.5 % (0.0-10.0); Hemoglobin 9.4 g/dL (12.0-16.0); Mean Corpuscular HGB CONC 31.1 g/dL (32.0-36.0); Mean Corpuscular Hemoglobin 27.2 pg (27.0-31.0); Mean Corpuscular Volume 87.5 fL (78.0-98.0); Mean Platelet Volume 7.8 fL (7.4-10.4); Platelet Count 245 thou/uL (130-400); RBC Distribution Width 15.7 % (11.5-14.5); Red Blood Cell (RBC) Count 3.47 mill/uL (4.20-5.40); White Blood Cell (WBC) Count 12.8 thou/uL (4.8-10.8)
[2018-07-12 06:53] LABS: Anion Gap 8 mmol/L (10-20); BUN (Urea Nitrogen) 23 mg/dL (9.8-20.1); Calc. Creatinine Clearance 59 mL/min (70-130); Calcium 7.2 mg/dL (7.8-10.44); Carbon Dioxide 21 mmol/L (23-31); Chloride 105 mmol/L (98-107); Estimated GFR-MDRD 87; Glucose 123 mg/dL (83-110); Potassium 4.1 mmol/L (3.5-5.1); Sodium 130 mmol/L (136-145)
--- NOTE | 2018-07-12 09:29 | PDOC.CTH ---
Cardiology Progress Note - Subjective The pt seen and examined. No overnight events. No cardiac complaints. Per family, she exercised with PT yesterday. - Objective Vital Signs Temp Pulse Resp BP Pulse Ox 07/12/18 03:45 98.2 F 80 20 105/53 L 98 07/11/18 23:50 96.8 F L 84 20 105/54 L 98 Admit Weight 112 lb 11.2 oz Weight 123 lb 07/11/18 07/12/18 07/13/18 06:59 06:59 06:59 Intake Total 3316.4 4108.5 Output Total 650 100 Balance 2666.4 4008.5 - Physical Examination General/Neuro: alert & oriented x3 Neck: no JVD present Lungs: CTA Heart: RRR Abdomen: soft Extremities: other: (No edema) - Telemetry Telemetry Rhythm: SR, frequent PVCs, HR 70-80s - Labs Result Diagrams: 07/12/18 05:57 07/12/18 05:57 Troponin/CKMB Troponin I 0.020 ng/mL (< 0.028) 07/07/18 21:22 Labs: troponin - Assessment/Plan 1. New onset AFib with RVR - Converted back to SR around 0300 on 07/10/2018; On Diltiazem 120mg PO qd; No OAC or ASA for now due to high risk of GI bleed 2/2 colitis. Cont. to monitor on tele. 2. Severe dehydration - improving; on D5W @ 100ml/h now for hypernatremia, which is now Hyponatremia today Na level 130; 3. Stomatitis - managed by ID/PCP 4. Colitis - less diarrhea this AM; managed by GI 5. Hypothyroidism 6. RA MAR reviewed * Echo on 06/12/2018: EF: 55-60%, severe TR, mod MR and ( YOLANDA 1.44cm2 ), mod LAE, mild FL. Pt. seen and eval. by me. I agree with the A/P by the PAYROLL MACHINE OPERATOR. Pt. is + for cryptosporidium. Likely cause of the diarhea. She is feeling better. Still not able to eat due to oral lesions which are liely Herpes simplex. the cardiac status remains stable. RRR. Chest clear. The MR and are not significant issues at this time. We will follow this in the future and she may eventually need a TAVR, prior to that she will need a cardiac cath. This will be in the future after she has recovered and regained her strength. gjm Review of Systems - Review of Systems Constitutional: reports: no symptoms reported EENTM: reports: no symptoms reported Respiratory: reports: no symptoms reported Cardiac (ROS): reports: no symptoms reported ABD/GI: reports: no symptoms reported : reports: no symptoms reported
[2018-07-12] MEDS: Pantoprazole 40 MG VIAL IVP SCH (09:44)
[2018-07-12] MEDS: Nystatin 500,000 UNITS/5 ML UDCUP SSW SCH ×4 (09:47→21:07)
[2018-07-12] MEDS: Enoxaparin Sodium 30 MG/0.3 ML SYRINGE SC SCH (09:48)
[2018-07-12] MEDS: Vancomycin HCl 25 MG/ML Oral PO SCH ×4 (09:51→21:07)
--- NOTE | 2018-07-12 10:00 | RAD ---
CHEST 1 VIEW: HISTORY: Followup. COMPARISON: Radiograph of 07/09/2018. FINDINGS: The patient has an enteric tube with side port below the GE junction. Small effusions. There is no pneumothorax appreciated. Mild scarring in the lung apices. Some opacities in the both lower lobes. IMPRESSION: 1. Similar small left effusion. 2. Bibasilar airspace opacity concerning for infection or aspiration. POS: [facility]
[2018-07-12] MEDS: Digoxin 0.125 MG TAB PO SCH (10:46)
[2018-07-12] MEDS: Dextrose 5% in Water 1,000 ML IV SCH ×4 (11:02→21:07)
--- NOTE | 2018-07-12 15:08 | PRG ---
DATE OF SERVICE: 07/12/2018 SUBJECTIVE: Ms. Rosenbaum had several liquidy stools today. Her mouth ulcers seem to be improving with pain and her speech is becoming more clear. OBJECTIVE: VITAL SIGNS: Temperature 98.4, pulse 84, blood pressure is 91/51. GENERAL: She is in no acute distress. LUNGS: Clear to auscultation bilaterally. HEART: Regular rate and rhythm. ABDOMEN: Soft, nontender, and nondistended. Bowel sounds are present. EXTREMITIES: No lower extremity edema. LABORATORY DATA: White blood cell count 12.8, hemoglobin 9.4, and platelets 245. Creatinine 0.65. The ulcer swab for HSV came back positive. Stool came out positive for Cryptosporidium antigen. IMPRESSION: 1. Severe HSV stomatitis. She is clinically improving on acyclovir. She has an NG tube in place and is tolerating tube feeds. 2. Severe protein-calorie malnutrition. 3. Acute diarrhea and CT showing evidence of colitis with thickening throughout the colon. Clostridium difficile did test negative, however, clinical suspicion for this was high. The Cryptosporidium antigen came back positive, which could be the cause of her recurrent diarrhea given her immune suppression. I would not typically expect to see the colon thickening with Cryptosporidium. RECOMMENDATIONS: 1. She has been started on Alinia. Duration of therapy will likely need to be taken in consideration with the chronic immune suppression. 2. I think it would be reasonable to finish out a course of vancomycin, however, she could likely wean off the metronidazole. I will defer this to Dr. Rizo. 3. She was tolerating the NG tube feeds well. Job ID: [id number]
--- NOTE | 2018-07-12 15:25 | PRG ---
DATE OF SERVICE: 07/12/2018 SUBJECTIVE: Ms. Rosenbaum is still having the NG tube for feeding and has still quite a bit of soreness in her mouth. She also continues with diarrhea. No chest pain or abdominal pain. No genitourinary symptoms. She is voiding in the diaper. OBJECTIVE: VITAL SIGNS: Normal temperature, blood pressure 91/51, pulse 84. GENERAL: Somewhat cachectic, awake. HEENT: NG tube in place. Oral cavity is still with the ulcerations, a little bit less prominent than before. LUNGS: Clear. HEART: S1 and S2 regular rate. ABDOMEN: Soft without tenderness. LABORATORY DATA: White cell count 12.8, hemoglobin 9.4, and platelets 245. Sodium 130, creatinine 0.65. Herpes simplex virus DNA PCR type 1 positive from the oral swab and a parasite screen showed positive for Cryptosporidium antigen. ASSESSMENT: 1. Herpes simplex stomatitis. 2. Cryptosporidium associated with thickening of the colon. 3. Rheumatoid arthritis. DISCUSSION: Usually Cryptosporidium does not cause inflammatory changes, so the thickening of the colon is unlikely to be secondary to Cryptosporidium and more likely to be an alternate process. The herpes simplex positive study was expected and we will continue acyclovir intravenous. She is immunosuppressed and probably clinical response will be delayed. Job ID: [id number]
[2018-07-13] MEDS: ACYCLOVIR SODIUM IVPB SCH ×3 (02:30→18:46)
[2018-07-13] MEDS: SODIUM CHLORIDE 0.9% IVPB SCH ×3 (02:30→18:46)
[2018-07-13] MEDS: metroNIDAZOLE 500 MG in Premix Bag 1 BAG IVPB SCH ×3 (05:13→21:47)
[2018-07-13] MEDS: Dextrose 5% in Water 1,000 ML IV SCH (05:34)
[2018-07-13 07:03] LABS: Anion Gap 11 mmol/L (10-20); BUN (Urea Nitrogen) 19 mg/dL (9.8-20.1); Calc. Creatinine Clearance 61 mL/min (70-130); Calcium 7.4 mg/dL (7.8-10.44); Carbon Dioxide 20 mmol/L (23-31); Chloride 105 mmol/L (98-107); Estimated GFR-MDRD 90; Glucose 119 mg/dL (83-110); Sodium 132 mmol/L (136-145)
[2018-07-13 07:14] LABS: Band 15 % (5-11); Eosinophils 3 % (0-10); Hemoglobin 10.2 g/dL (12.0-16.0); Lymphocytes 15 % (21-51); MDiff Complete? YES; Mean Corpuscular HGB CONC 30.7 g/dL (32.0-36.0); Mean Corpuscular Hemoglobin 26.6 pg (27.0-31.0); Mean Corpuscular Volume 86.7 fL (78.0-98.0); Mean Platelet Volume 8.1 fL (7.4-10.4); Monocytes 13 % (0-10); Myelocyte 1 % (0-0); Neutrophil 53 % (42-75); Platelet Count 252 thou/uL (130-400); Platelet Morphology Comment Appears Adequate; RBC Distribution Width 15.6 % (11.5-14.5); Red Blood Cell (RBC) Count 3.83 mill/uL (4.20-5.40); White Blood Cell (WBC) Count 10.1 thou/uL (4.8-10.8)
[2018-07-13] MEDS: Digoxin 0.125 MG TAB PO SCH (10:16)
[2018-07-13] MEDS: Enoxaparin Sodium 30 MG/0.3 ML SYRINGE SC SCH (10:18)
[2018-07-13] MEDS: Nystatin 500,000 UNITS/5 ML UDCUP SSW SCH ×4 (10:19→21:46)
[2018-07-13] MEDS: Vancomycin HCl 25 MG/ML Oral PO SCH ×4 (10:20→21:46)
[2018-07-13] MEDS: Pantoprazole 40 MG VIAL IVP SCH (11:32)
[2018-07-13] MEDS ORDERED: Gabapentin 300 MG CAP PO PRN (12:44)
--- NOTE | 2018-07-13 12:51 | PDOC.PN ---
- Subjective Encounter Start Date: 07/13/18 Encounter Start Time: 12:49 Patient seen and examined, daughter at bedside, all questions answered. - Objective Resuscitation Status - Order Detail: 07/07/18 16:45 Resuscitation Status Routine Resuscitation Status: FULL: Full Resuscitation Vital Signs & Weight: Vital Signs (12 hours) Temp Pulse Resp BP BP Pulse Ox 07/13/18 10:18 86 107/55 L 07/13/18 10:16 86 07/13/18 08:25 97.1 F L 84 19 120/58 L 98 07/13/18 04:49 97.9 F 84 20 108/54 L 98 Weight Admit Weight 112 lb 11.2 oz Weight 124 lb 11.2 oz I&O: 07/12/18 07/13/18 07/14/18 06:59 06:59 06:59 Intake Total 4108.5 2940 Output Total 100 300 Balance 4008.5 2640 Result Diagrams: 07/13/18 06:13 07/13/18 06:13 Phys Exam - Physical Examination Constitutional: NAD HEENT: PERRLA, moist MMs, sclera anicteric +NG tube stomatitis Neck: no nodes, no JVD Respiratory: no wheezing, no rales, no rhonchi Cardiovascular: RRR, no rub 2/6 ASIA Gastrointestinal: soft, non-tender, no distention Musculoskeletal: no edema, pulses present Dx/Plan (1) Stomatitis and mucositis Code(s): K12.1 - OTHER FORMS OF STOMATITIS; K12.30 - ORAL MUCOSITIS (ULCERATIVE) , UNSPECIFIED Status: Acute (2) Cryptococcus Code(s): B45.9 - CRYPTOCOCCOSIS, UNSPECIFIED Status: Acute (3) Hypertension Code(s): I10 - ESSENTIAL (PRIMARY) HYPERTENSION Status: Acute - Plan * cont with acyclovir * will DC D5W for now given low Na levels, will also increase free water flushes to 100cc q4hrs with tube feeds * repeat labs in AM * brown urine likely secondary to ATN which may have been present at time of arrival, Cr improving * cont flagyl for crypto * start gabapentin for neuropathic pain * case and plan d/w patient and daughter at length, they understand and agree with this plan
--- NOTE | 2018-07-13 13:20 | PDOC.CTH ---
Cardiology Progress Note - Subjective The pt seen and examined. No overnight events. No cardiac complaints. - Objective Vital Signs Temp Pulse Resp BP BP Pulse Ox 07/13/18 10:18 86 107/55 L 07/13/18 10:16 86 07/13/18 08:25 97.1 F L 84 19 120/58 L 98 07/13/18 04:49 97.9 F 84 20 108/54 L 98 Admit Weight 112 lb 11.2 oz Weight 124 lb 11.2 oz 07/12/18 07/13/18 07/14/18 06:59 06:59 06:59 Intake Total 4108.5 2940 Output Total 100 300 Balance 4008.5 2640 - Physical Examination General/Neuro: alert & oriented x3 Neck: no JVD present Lungs: other: (diminished at bases) Heart: RRR Abdomen: soft Extremities: other: (No edema) - Telemetry Telemetry Rhythm: SR - Labs Result Diagrams: 07/13/18 06:13 07/13/18 06:13 Troponin/CKMB Troponin I 0.020 ng/mL (< 0.028) 07/07/18 21:22 - Assessment/Plan 1. New onset AFib with RVR - Converted back to SR around 0300 on 07/10/2018; On Diltiazem 120mg PO qd; No OAC or ASA for now due to high risk of GI bleed 2/2 colitis. Cont. to monitor on tele. 2. Severe dehydration - improving;off fluid 2/2 Hyponatremia, which has been improving today. 3. Stomatitis - managed by ID/PCP 4. Colitis 2/2 + for cryptosporidium - less diarrhea this AM; managed by GI 5. Hypothyroidism 6. RA MAR reviewed * Echo on 06/12/2018: EF: 55-60%, severe TR, mod MR and ( YOLANDA 1.44cm2 ), mod LAE, mild AZ (The MR and are not significant issues at this time. We will follow this in the future and she may eventually need a TAVR, prior to that she will need a cardiac cath. This will be in the future after she has recovered and regained her strength) Pt. seen and eval. by me. I agree with the A/P by the ACCOUNTING FILE CLERK. She is doing well from a cardiac standpoint. I will sign off for now. If any problems over the weekend from a cardiac standpoint then please page cardiology. Review of Systems - Review of Systems Constitutional: reports: weakness Respiratory: reports: no symptoms reported Cardiac (ROS): reports: no symptoms reported ABD/GI: reports: no symptoms reported : reports: no symptoms reported
--- NOTE | 2018-07-13 15:59 | PRG ---
DATE OF SERVICE: 07/13/2018 SUBJECTIVE: Ms. Rosenbaum continues to have improvement in the pain with her oral ulcers; however, still not taking anything by mouth significantly. She has an NG tube in and is tolerating feeds. She has diarrhea and has rectal tube in place. OBJECTIVE: VITAL SIGNS: Temperature is 97.6, pulse 82, blood pressure 102/51. GENERAL: She is in no acute distress. She is awake and alert. She has NG tube in place. LUNGS: Clear to auscultation bilaterally. HEART: Regular rate and rhythm. ABDOMEN: Soft. Minimal tenderness in the lower abdomen. Bowel sounds are present. EXTREMITIES: No lower extremity edema. IMPRESSION: 1. Severe herpes stomatitis. This is slowly clinically improving. She is unable to take significant oral intake and has an NG tube in for enteral nutrition. 2. Acute diarrhea. She is continuing on vancomycin to complete a 10-day course for suspected clostridium difficile; however, she did test negative. She tested positive for Cryptosporidium; however, it is uncertain if this is a true positive. Also, the actual thickening on the CT scan would not be expected in the colon with Cryptosporidium alone. She is being covered with Alinia. Otherwise, the diarrhea could be related to her tube feeds and all the antibiotics as well. 3. Severe protein calorie malnutrition. RECOMMENDATIONS: 1. She is on acyclovir for the herpes stomatitis. 2. Continue vancomycin and Alinia. I would think that we can likely discontinue the metronidazole at this point, however, I will defer this to Infectious Disease, Dr. Rizo. 3. Continue the NG tube feeds until she is able to swallow oral intake adequately. 4. Dr. Hernandez is covering the weekend. Job ID: [id number]
[2018-07-14] MEDS: ACYCLOVIR SODIUM IVPB SCH ×3 (02:41→17:16)
[2018-07-14] MEDS: SODIUM CHLORIDE 0.9% IVPB SCH ×3 (02:41→17:16)
[2018-07-14] MEDS: metroNIDAZOLE 500 MG in Premix Bag 1 BAG IVPB SCH ×3 (05:47→22:12)
[2018-07-14 05:49] LABS: Anion Gap 9 mmol/L (10-20); BUN (Urea Nitrogen) 17 mg/dL (9.8-20.1); Calc. Creatinine Clearance 67 mL/min (70-130); Calcium 7.5 mg/dL (7.8-10.44); Carbon Dioxide 21 mmol/L (23-31); Chloride 107 mmol/L (98-107); Estimated GFR-MDRD Greater than 90; Glucose 110 mg/dL (83-110); Potassium 4.2 mmol/L (3.5-5.1); Sodium 133 mmol/L (136-145)
[2018-07-14 06:07] LABS: Band 21 % (5-11); Eosinophils 3 % (0-10); Hemoglobin 10.2 g/dL (12.0-16.0); Lymphocytes 21 % (21-51); MDiff Complete? YES; Mean Corpuscular HGB CONC 30.5 g/dL (32.0-36.0); Mean Corpuscular Hemoglobin 26.2 pg (27.0-31.0); Mean Corpuscular Volume 85.8 fL (78.0-98.0); Monocytes 18 % (0-10); Neutrophil 37 % (42-75); Platelet Count 300 thou/uL (130-400); Platelet Morphology Comment Appears Adequate; RBC Distribution Width 15.8 % (11.5-14.5); RBC Morphology Normal; White Blood Cell (WBC) Count 12.1 thou/uL (4.8-10.8)
[2018-07-14] MEDS: Vancomycin HCl 25 MG/ML Oral PO SCH ×4 (09:24→22:12)
[2018-07-14] MEDS: Enoxaparin Sodium 30 MG/0.3 ML SYRINGE SC SCH (09:24)
[2018-07-14] MEDS: Digoxin 0.125 MG TAB PO SCH (09:24)
[2018-07-14] MEDS: Pantoprazole 40 MG VIAL IVP SCH (09:25)
[2018-07-14] MEDS: Nystatin 500,000 UNITS/5 ML UDCUP SSW SCH ×4 (09:25→22:12)
--- NOTE | 2018-07-14 14:05 | PRG ---
DATE OF SERVICE: 07/14/2018 This is a cross coverage for Dr. Jay Sevilla. SUBJECTIVE: Ms. Barbie Rosenbaum is a very pleasant 83-year-old female with rheumatoid arthritis, herpes simplex virus stomatitis with dysphagia, painful swallowing, and also diarrhea. Her abdomen CAT scan showed diffuse thickening of colonic wall. Has C. difficile toxin negative. She had been empirically started on vancomycin and Flagyl. She is also on acyclovir for herpes simplex stomatitis. She appears weak. She is tolerating NG tube feeding very well. She has some diarrhea, but the volume appears to be less than before. The stools are watery and dark brown. Denies any abdominal pain. As far as the herpes simplex stomatitis, the pain is less and she is not having that much problem swallowing. She is able to take pills without difficulty. PHYSICAL EXAMINATION: GENERAL: She is a very fragile looking elderly white female, appears comfortable. VITAL SIGNS: Afebrile, pulse is 73, blood pressure 98/54. CARDIOVASCULAR SYSTEM: Within normal limits. LUNGS: Within normal limits. ABDOMEN: Soft. Abdomen is nondistended. Abdomen is nontender. She has hyperactive bowel sounds. LABORATORY DATA: WBC 12,100, hemoglobin 10.2, hematocrit 33.4, MCV 85.8, platelet count 300,000, polymorphs 37, bandemia is 21%, lymphocytes 21%. Chemistry panel: Sodium 133, potassium 4.2, chloride 107, bicarb 21, BUN is 17, calcium 7.3. CLINICAL IMPRESSION: Herpes simplex stomatitis, painful swallowing. Diarrhea, etiology unclear. Possible Clostridium difficile colitis. RECOMMENDATION: 1. No change in treatment recommended. 2. Continue present treatment. Job ID: [id number]
--- NOTE | 2018-07-14 16:30 | PDOC.PN ---
- Subjective Encounter Start Date: 07/14/18 Encounter Start Time: 11:25 Ms. Rosenbaum was seen today in follow-up of severe Herpes Stomatitis. She says she is doing a bit better today. she has less mouth and throat pain. - Objective Resuscitation Status - Order Detail: 07/07/18 16:45 Resuscitation Status Routine Resuscitation Status: FULL: Full Resuscitation MAR Reviewed: Yes Vital Signs & Weight: Vital Signs (12 hours) Temp Pulse Resp BP Pulse Ox 07/14/18 15:00 97.8 F 80 18 98/51 L 92 L 07/14/18 11:40 97.2 F L 83 15 98/54 L 93 L 07/14/18 07:50 98.4 F 85 16 101/49 L 94 L Weight Admit Weight 112 lb 11.2 oz Weight 124 lb 11.2 oz I&O: 07/13/18 07/14/18 07/15/18 06:59 06:59 07:59 Intake Total 2940 2836 200 Output Total 300 1550 Balance 2640 1286 200 Result Diagrams: 07/14/18 04:56 07/14/18 04:56 Phys Exam - Physical Examination HEENT: PERRLA Respiratory: no wheezing, no rales, no rhonchi, clear to auscultation bilateral Cardiovascular: RRR, no significant murmur, no rub Gastrointestinal: soft, non-tender, no distention, positive bowel sounds Musculoskeletal: no edema, pulses present Dx/Plan (1) Herpes stomatitis Code(s): B00.2 - HERPESVIRAL GINGIVOSTOMATITIS AND PHARYNGOTONSILLITIS Status : Acute (2) Rheumatoid arthritis Code(s): M06.9 - RHEUMATOID ARTHRITIS, UNSPECIFIED Status: Acute (3) Hypertension Code(s): I10 - ESSENTIAL (PRIMARY) HYPERTENSION Status: Acute (4) Clostridium difficile diarrhea Code(s): A04.72 - ENTEROCOLITIS D/T CLOSTRIDIUM DIFFICILE, NOT SPCF RECUR Status: Acute (5) Atrial fibrillation Code(s): I48.91 - UNSPECIFIED ATRIAL FIBRILLATION Status: Acute - Plan * Herpes Stomatitis- continue Acyclovir and nutritional support with tube feedings * RA- stable * AFIB- stable on Digoxin and Diltiazem- no anticoagulation due to risk for bleed * C. Diff Colitis- continue oral Vancomycin, Flagyl and Alinia
--- NOTE | 2018-07-14 23:07 | EKG ---
Test Reason : Blood Pressure : / mmHG Vent. Rate : 090 BPM Atrial Rate : 090 BPM P-R Int : 126 ms QRS Dur : 104 ms QT Int : 368 ms P-R-T Axes : 058 078 -09 degrees QTc Int : 450 ms Normal sinus rhythm T wave abnormality, consider inferior ischemia T wave inversion inferior leads Confirmed by TIANA GORMAN ([id number]), film editor supervisor DUANE ALBERT ([id number]) on 07/14/2018 11:07:10 PM Referred By: Confirmed By:TIANA GORMAN
[2018-07-15] MEDS: SODIUM CHLORIDE 0.9% IVPB SCH ×3 (01:35→17:05)
[2018-07-15] MEDS: ACYCLOVIR SODIUM IVPB SCH ×3 (01:35→17:05)
[2018-07-15] MEDS: metroNIDAZOLE 500 MG in Premix Bag 1 BAG IVPB SCH ×3 (06:15→22:17)
[2018-07-15] MEDS: Enoxaparin Sodium 30 MG/0.3 ML SYRINGE SC SCH (09:40)
[2018-07-15] MEDS: Digoxin 0.125 MG TAB PO SCH (09:40)
[2018-07-15] MEDS: Nystatin 500,000 UNITS/5 ML UDCUP SSW SCH ×4 (09:40→21:59)
[2018-07-15] MEDS: Pantoprazole 40 MG VIAL IVP SCH (09:41)
[2018-07-15] MEDS: Vancomycin HCl 25 MG/ML Oral PO SCH ×4 (09:41→21:59)
--- NOTE | 2018-07-15 12:51 | PDOC.PN ---
- Subjective Encounter Start Date: 07/15/18 Encounter Start Time: 12:49 Ms. Rosenbaum was seen today in follow-up of severe mucositis. She continues to feel better. She has less mouth pain. She denies any abdominal pain, and says the diarrhea has improved. - Objective Resuscitation Status - Order Detail: 07/07/18 16:45 Resuscitation Status Routine Resuscitation Status: FULL: Full Resuscitation MAR Reviewed: Yes Vital Signs & Weight: Vital Signs (12 hours) Temp Pulse Resp BP Pulse Ox 07/15/18 12:00 97.9 F 84 17 110/62 94 L 07/15/18 09:40 88 07/15/18 08:00 98.1 F 90 18 122/60 93 L 07/15/18 03:51 97.3 F L 88 20 120/56 L 93 L 07/15/18 00:00 98.0 F 72 18 102/56 L 93 L Weight Admit Weight 112 lb 11.2 oz Weight 124 lb 2 oz I&O: 07/14/18 07/15/18 07/16/18 05:59 06:59 06:59 Intake Total 100 Output Total Balance 100 Result Diagrams: 07/14/18 04:56 07/14/18 04:56 Phys Exam - Physical Examination HEENT: PERRLA + ulcers on the buccal mucosa Respiratory: no wheezing, no rales, no rhonchi, clear to auscultation bilateral Cardiovascular: RRR, no significant murmur, no rub Gastrointestinal: soft, non-tender, no distention, positive bowel sounds Musculoskeletal: no edema Dx/Plan (1) Herpes stomatitis Code(s): B00.2 - HERPESVIRAL GINGIVOSTOMATITIS AND PHARYNGOTONSILLITIS Status : Acute (2) Rheumatoid arthritis Code(s): M06.9 - RHEUMATOID ARTHRITIS, UNSPECIFIED Status: Acute (3) Hypertension Code(s): I10 - ESSENTIAL (PRIMARY) HYPERTENSION Status: Acute (4) Clostridium difficile diarrhea Code(s): A04.72 - ENTEROCOLITIS D/T CLOSTRIDIUM DIFFICILE, NOT SPCF RECUR Status: Acute (5) Atrial fibrillation Code(s): I48.91 - UNSPECIFIED ATRIAL FIBRILLATION Status: Acute - Plan * Severe Herpes Stomatitis- improving with Acyclovir * Continue Tube feeds for Nutritional support * AFIB- she has converted back to sinus- Continue Diltiazem and Digoxin. No anticoagulation due to risk for bleeding. * C. Diff Colitis- Diarrhea has slowed down. Continue oral Vancomycin and Flagyl , and Alinia- as per ID * she can be transitioned off Telemetry * check routine labs in the AM
--- NOTE | 2018-07-15 20:29 | PRG ---
DATE OF SERVICE: 07/15/2018 SUBJECTIVE: Ms. Barbie Rosenbaum is a very pleasant 83-year-old female hospitalized with herpes simplex stomatitis, diarrhea, and generalized weakness. In admission, she has been getting Alinia, Flagyl, and vancomycin for possible C. difficile colitis. However, C. difficile toxin and antigen negative. She also has severe HSV stomatitis . Over the last 24 hours, she has remarkably improved. She is awake, alert, and communicative. She appears more comfortable. She states her pain in the mouth and throat has almost gone, and she is able to drink liquid without any problem. She is tolerating tube feeding very well. She also has no complaints. PHYSICAL EXAMINATION: GENERAL: Thin built, appears comfortable. VITAL SIGNS: Stable. Afebrile, temperature is 98 degrees Fahrenheit, pulse is 88, and blood pressure is 119/63. She appears very comfortable. CARDIOVASCULAR: Lungs within normal limits. ABDOMEN: Soft. No organomegaly. No tenderness. No masses. RECOMMENDATIONS: I offered her to take the NG tube, start feeding. However, she does state does want to try to eat anything today. I would recommend continuing the NG feeding and encourage oral intake. Hopefully, and start oral feeding. We will sign off from today and if any developments, please call Dr. Aakash Messer. Job ID: [id number]
[2018-07-16] MEDS: SODIUM CHLORIDE 0.9% IVPB SCH ×3 (01:40→18:15)
[2018-07-16] MEDS: ACYCLOVIR SODIUM IVPB SCH ×3 (01:40→18:15)
[2018-07-16 05:05] LABS: Anion Gap 9 mmol/L (10-20); BUN (Urea Nitrogen) 14 mg/dL (9.8-20.1); Calc. Creatinine Clearance 66 mL/min (70-130); Calcium 7.6 mg/dL (7.8-10.44); Carbon Dioxide 24 mmol/L (23-31); Chloride 107 mmol/L (98-107); Estimated GFR-MDRD Greater than 90; Glucose 109 mg/dL (83-110); Potassium 4.5 mmol/L (3.5-5.1); Sodium 135 mmol/L (136-145)
[2018-07-16 05:24] LABS: Band 1 % (5-11); Hemoglobin 9.7 g/dL (12.0-16.0); Hypochromia SLIGHT = 6-15 cells (100X) (0-5/hpf); Lymphocytes 15 % (21-51); MDiff Complete? YES; Mean Corpuscular HGB CONC 30.4 g/dL (32.0-36.0); Mean Corpuscular Hemoglobin 26.1 pg (27.0-31.0); Mean Corpuscular Volume 85.9 fL (78.0-98.0); Mean Platelet Volume 7.7 fL (7.4-10.4); Monocytes 9 % (0-10); Neutrophil 75 % (42-75); Platelet Count 360 thou/uL (130-400); Platelet Morphology Comment Appears Adequate; Red Blood Cell (RBC) Count 3.72 mill/uL (4.20-5.40); White Blood Cell (WBC) Count 12.3 thou/uL (4.8-10.8)
[2018-07-16] MEDS: metroNIDAZOLE 500 MG in Premix Bag 1 BAG IVPB SCH ×3 (06:30→21:42)
[2018-07-16] MEDS: Digoxin 0.125 MG TAB PO SCH (09:34)
[2018-07-16] MEDS: Enoxaparin Sodium 30 MG/0.3 ML SYRINGE SC SCH (09:36)
[2018-07-16] MEDS: Nystatin 500,000 UNITS/5 ML UDCUP SSW SCH ×4 (09:36→21:41)
[2018-07-16] MEDS: Vancomycin HCl 25 MG/ML Oral PO SCH ×4 (09:37→21:41)
[2018-07-16] MEDS: Pantoprazole 40 MG VIAL IVP SCH (09:38)
--- NOTE | 2018-07-16 10:05 | RAD ---
PORTABLE CHEST 1 VIEW: Date: 07/16/18 Time: 0836 hours HISTORY: Dehydration, failure to thrive. FINDINGS/IMPRESSION: Comparison made with exam of 07/12/18. Nasogastric tube is again seen. The heart size is stable. There are bilateral opacities in the mid an d lower lung zones. Accompanying effusions may be present. POS: C
--- NOTE | 2018-07-16 13:37 | ULT ---
PELVIC ULTRASOUND: Date: 07/16/18 HISTORY: Follow-up of cystic mass seen in left adnexa on recent CT study. COMPARISON: CT examination of 07/08/18. FINDINGS: Real-time imaging of the pelvis was obtained transabdominally. This shows a postmenopausal appearing uterus measuring 2.7 x 3.6 x 6.8 cm. The endometrium is not thickened. Neither the right nor left ovary is definitively identified on this examination. Technologist has mar ked an area described as the right adnexa; however, I believe this is related to sigmoid colon when r eviewing the CT study. Cystic lesion in the left ovary is not visualized, probably related to its hig h position and obscuring bowel. IMPRESSION: 1. Normal appearing uterus. 2. Nonvisualization of either ovary. POS: TPC
[2018-07-17] MEDS: SODIUM CHLORIDE 0.9% IVPB SCH ×3 (02:34→17:28)
[2018-07-17] MEDS: ACYCLOVIR SODIUM IVPB SCH ×3 (02:34→17:28)
--- NOTE | 2018-07-17 06:05 | CON ---
DATE OF CONSULTATION: 07/16/2018 CHIEF COMPLAINT: Adnexal mass, elevated CA-125. HISTORY OF PRESENT ILLNESS: The patient is an 83-year-old female, who was admitted to [facility] on 07/07/2018, for failure to thrive, for severe dehydration, hyperkalemia, acute kidney injury, multiple oral ulcers, physical deconditioning, resolving acute gastroenteritis. During her workup here, the patient was noted to have an adnexal mass seen on CT scan of about 3.9 cm of the left adnexa. During her workup, the patient was also noted to have pancolitis and possible pneumonitis versus atelectasis. A CA-125 was ordered by her primary team and was noted to be elevated at 132. At this point, DREDGE HAND was consulted for evaluation. A pelvic ultrasound was ordered by myself, resulting as follows; normal-appearing uterus and nonvisualization of either ovary. In comparing CT scans, the cystic lesion of right adnexa is believed to be related to the sigmoid colon upon review of the CT scan. While I cannot definitively rule out a RELIABILITY TECHNICIAN malignancy, there is no ultrasound evidence of a significant adnexal mass. No ascites or other findings on CT scan suggests a widespread malignancy. Other known causes for elevated CA-125 include colitis, peritonitis, pneumonitis, all of which could explain in this particular case why her CA-125 is elevated. RECOMMENDATIONS: At this time would be to repeat her CA-125 when this inflammatory process/infectious process is resolved and see if her CA-125 remains elevated. Should it remain elevated, referral to Gynecology Oncologist in outpatient setting would be reasonable for further evaluation. Also, we would recommend repeat ultrasound in the near future to confirm or refute the presence of an adnexal mass related to the ovary. I did speak with the family, with the patient's daughter today as the patient was asleep and shared with her my initial thoughts concerning the patient's findings of CA-125 and presence of alternate etiologies for this elevation. I will be reviewing the final ultrasound results with them in the morning and my recommendation. Should I be of any further assistance, please let me know. Otherwise, I will be signing off at this time. Job ID: [id number]
[2018-07-17] MEDS: metroNIDAZOLE 500 MG in Premix Bag 1 BAG IVPB SCH ×2 (06:57→13:39)
[2018-07-17] MEDS: Vancomycin HCl 25 MG/ML Oral PO SCH ×2 (09:08→13:39)
[2018-07-17] MEDS: Digoxin 0.125 MG TAB PO SCH (09:10)
[2018-07-17] MEDS: Nystatin 500,000 UNITS/5 ML UDCUP SSW SCH ×4 (09:11→21:15)
[2018-07-17] MEDS: Pantoprazole 40 MG VIAL IVP SCH (09:12)
[2018-07-17] MEDS: Enoxaparin Sodium 30 MG/0.3 ML SYRINGE SC SCH (09:12)
[2018-07-18] MEDS: SODIUM CHLORIDE 0.9% IVPB SCH ×3 (02:09→18:26)
[2018-07-18] MEDS: ACYCLOVIR SODIUM IVPB SCH ×3 (02:09→18:26)
[2018-07-18 06:31] LABS: #Basophils 0.1 thou/uL (0.0-0.2); #Eosinphils 0.1 thou/uL (0.0-0.7); #Lymphocytes 1.5 thou/uL (1.20-3.40); #Monocytes 1.3 thou/uL (0.11-0.59); #Neutrophils 8.6 thou/uL (1.40-6.50); %Basophils 0.6 % (0.0-1.0); %Eosinophils 0.5 % (0.0-10.0); %Lymphocytes 13.2 % (21.0-51.0); %Monocytes 11.3 % (0.0-10.0); %Neutrophils 74.4 % (42.0-75.0); Mean Corpuscular HGB CONC 30.6 g/dL (32.0-36.0); Mean Corpuscular Hemoglobin 25.7 pg (27.0-31.0); Mean Corpuscular Volume 83.8 fL (78.0-98.0); Mean Platelet Volume 7.5 fL (7.4-10.4); Platelet Count 413 thou/uL (130-400); Red Blood Cell (RBC) Count 3.91 mill/uL (4.20-5.40); White Blood Cell (WBC) Count 11.5 thou/uL (4.8-10.8)
[2018-07-18 06:43] LABS: Anion Gap 8 mmol/L (10-20); BUN (Urea Nitrogen) 14 mg/dL (9.8-20.1); Calc. Creatinine Clearance 69 mL/min (70-130); Calcium 7.7 mg/dL (7.8-10.44); Carbon Dioxide 24 mmol/L (23-31); Chloride 108 mmol/L (98-107); Estimated GFR-MDRD Greater than 90; Glucose 115 mg/dL (83-110); Potassium 4.5 mmol/L (3.5-5.1); Sodium 135 mmol/L (136-145)
[2018-07-18] MEDS ORDERED: Methyl Salicylate/Menthol 85 GM TUBE TOP PRN (08:14)
[2018-07-18] MEDS ORDERED: Acetaminophen 325 MG TAB PO PRN (08:17)
[2018-07-18] MEDS: Nystatin 500,000 UNITS/5 ML UDCUP SSW SCH ×4 (08:45→21:06)
[2018-07-18] MEDS: Pantoprazole 40 MG VIAL IVP SCH (08:45)
[2018-07-18] MEDS: Digoxin 0.125 MG TAB PO SCH (08:45)
[2018-07-18] MEDS: Enoxaparin Sodium 30 MG/0.3 ML SYRINGE SC SCH (08:45)
[2018-07-19] MEDS: SODIUM CHLORIDE 0.9% IVPB SCH ×3 (02:37→18:31)
[2018-07-19] MEDS: ACYCLOVIR SODIUM IVPB SCH ×3 (02:37→18:31)
[2018-07-19] MEDS ORDERED: Sodium Bicarbonate Tab 325 MG TAB PER TUBE PRN (08:01)
[2018-07-19] MEDS ORDERED: Pancrelipase DR 12000 1 CAP FS PRN (08:01)
[2018-07-19] MEDS: Enoxaparin Sodium 30 MG/0.3 ML SYRINGE SC SCH (09:06)
[2018-07-19] MEDS: Nystatin 500,000 UNITS/5 ML UDCUP SSW SCH ×4 (09:06→21:33)
[2018-07-19] MEDS: Digoxin 0.125 MG TAB PO SCH (09:06)
[2018-07-19] MEDS: Pantoprazole 40 MG VIAL IVP SCH (09:07)
--- NOTE | 2018-07-19 16:08 | PRG ---
DATE OF SERVICE: 07/19/2018 SUBJECTIVE: Feeling better. She is able to swallow now ice cream and putting still with loose stool and still has a rectal tube in place. No respiratory symptoms. No abdominal pain. OBJECTIVE: VITAL SIGNS: T-max 97.9, blood pressure 115/65, pulse 80, respirations 16, O2 saturation 96%. GENERAL: Frail looking, awake, oriented, still with NG tube in place. Oral cavity lesions are clearly improving. I would say there has been at least 70% improvement since admission. LUNGS: With scattered rhonchi. HEART: S1 and S2, regular rate. ABDOMEN: Soft, not distended. EXTREMITIES: No edema. LABORATORY DATA AND DIAGNOSTIC STUDIES: White cell count 11.5, hemoglobin 10, and platelets 413. Chemistry with creatinine 0.6. There is a chest x-ray from 07/16 and NG tube seen in place. Heart size is stable. Bilateral opacities in mid lower lung zones. ASSESSMENT AND DISCUSSION: Herpes simplex stomatitis, Cryptosporidium associated diarrhea, rheumatoid arthritis with lung infiltrates. There has been improvement in the herpes simplex stomatitis. The diarrhea still there, usually occurs with Cryptosporidium does not cause thickening of the bowel because it is not an invasive disease, so an alternate process needs to be considered. If she continues with diarrhea, she may need endoscopic procedure for diagnostic purposes. Job ID: [id number]
[2018-07-20] MEDS: SODIUM CHLORIDE 0.9% IVPB SCH ×3 (02:59→17:58)
[2018-07-20] MEDS: ACYCLOVIR SODIUM IVPB SCH ×3 (02:59→17:58)
[2018-07-20] MEDS: Digoxin 0.125 MG TAB PO SCH (08:40)
[2018-07-20] MEDS: Enoxaparin Sodium 30 MG/0.3 ML SYRINGE SC SCH (08:40)
[2018-07-20] MEDS: Nystatin 500,000 UNITS/5 ML UDCUP SSW SCH ×4 (08:40→21:48)
[2018-07-20] MEDS: Pantoprazole 40 MG VIAL IVP SCH (08:42)
--- NOTE | 2018-07-20 10:15 | PRG ---
DATE OF SERVICE: SUBJECTIVE: GI is called back today regarding persistence of diarrhea. This is my 1st time to meet the patient. She has previously seen my colleague, Dr. Aakash Messer and was seen earlier this hospitalization by Dr. Sevilla and Dr. Hernandez. Briefly, the patient had a recent colonoscopy just last month, which showed normal colonic mucosa. At that time, she had an adenoma removed. Since then, she has had a fairly severe diarrhea in association with oral ulcerations. She has been hospitalized here for almost two weeks now, treated for herpes stomatitis. Initial CT of the abdomen and pelvis demonstrated diffuse colon thickening and so she was empirically treated for C. difficile. Stool studies were negative for C. difficile, actually came back positive for Cryptosporidium antigen. She has been treated with oral vancomycin, which is now completed and also nitazoxanide 500 mg b.i.d., which continues. Through this time, the patient has been getting nutrition via nasogastric tube. She is slowly starting to eat more by mouth during this time. Apparently, her diarrhea has persisted. This is nonbloody diarrhea, but loose to watery. She has had a rectal tube in place for the past few days. The patient's daughter states that actually she feels the diarrhea is slowing down at least in volume, though the consistency remains quite loose. The patient is not willing to undergo any endoscopic procedure at this time. OBJECTIVE: VITAL SIGNS: Temperature 98.1, pulse 86, blood pressure 104/58, and 95% oxygen saturation on room air. GENERAL: Chronically ill 83-year-old woman lying in bed comfortably, in no acute distress. Nasogastric tube in place. HEART: Regular rate and rhythm. LUNGS: Clear to auscultation bilaterally. ABDOMEN: Bowel sounds present. The abdomen is flat, soft, and nontender to palpation throughout. EXTREMITIES: No peripheral edema. RECTAL: Rectal tube is in place with liquid light brown stool. LABORATORY STUDIES: Last labs were from 07/18/2018. WBC was 11.5, hemoglobin 10.0, platelets 413. Sodium 135, potassium 4.5, BUN 14, creatinine 0.60. HSV-1 was positive by DNA PCR. Stool studies from earlier this admission did show positive Cryptosporidium antigen, negative C. difficile, otherwise negative stool culture. ASSESSMENT AND PLAN: 1. Diarrhea, persistent. 2. Cryptosporidium enteritis, on treatment with nitazoxanide. 3. Diffuse colon thickening on CT scan at hospital presentation. I agree that Cryptosporidium alone would not necessarily explain the colon thickening appearance on her admission CT scan. She has now been treated empirically for C. difficile and still undergoing treatment for the Cryptosporidium, with persistence of diarrhea. This could just be multifactorial secondary to recovery from the Cryptosporidium infection, multiple antibiotics, and the tube feeds. I do think endoscopic investigation would be reasonable at this point, in order to obtain the duodenal and colon biopsies and assess the mucosa, but the patient declines this. Her daughter is fairly certain that the diarrhea is slowing down. So for now, we will not plan on any endoscopic investigation. Continue with current supportive cares. Antibiotics per Dr. Rizo. I think it would be reasonable to recheck the stool studies at this time, so I have gone ahead and order these including fecal lactoferrin. GI can follow along. Job ID: [id number]
[2018-07-21] MEDS: ACYCLOVIR SODIUM IVPB SCH ×3 (02:55→17:49)
[2018-07-21] MEDS: SODIUM CHLORIDE 0.9% IVPB SCH ×3 (02:55→17:49)
[2018-07-21] MEDS ORDERED: Lidocaine 2% Jelly 5 ML TUBE TOP PRN (07:52)
[2018-07-21] MEDS: Nystatin 500,000 UNITS/5 ML UDCUP SSW SCH ×4 (09:46→20:12)
[2018-07-21] MEDS: Enoxaparin Sodium 30 MG/0.3 ML SYRINGE SC SCH (09:48)
[2018-07-21] MEDS: Pantoprazole 40 MG VIAL IVP SCH (09:48)
[2018-07-21] MEDS: Digoxin 0.125 MG TAB PO SCH (09:48)
--- NOTE | 2018-07-21 14:28 | PRG ---
DATE OF SERVICE: 07/21/2018 SUBJECTIVE: Ms. Rosenbaum says she is feeling a bit better today, more energetic, was able to get up out of bed with assistance earlier. Rectal tube remains in place. She and her daughter feel that the diarrhea has really slowed down from yesterday until today. She is to tolerating her tube feeds. No abdominal pain. Stool studies came back all negative, except fecal lactoferrin is positive. PHYSICAL EXAMINATION: VITAL SIGNS: Temperature 97.5, pulse 89, blood pressure 103/63, and 92% oxygen saturation on room air. GENERAL: Frail, no acute distress. HEART: Regular rate and rhythm. LUNGS: Clear to auscultation bilaterally. ABDOMEN: Soft. Bowel sounds present. Nontender to palpation. EXTREMITIES: No peripheral edema. LABORATORY STUDIES: Repeat stool studies are negative for C. difficile. Stool cultures negative. Rapid parasite screen is negative. Fecal lactoferrin is elevated. ASSESSMENT AND PLAN: 1. Diarrhea, persistent. 2. Cryptosporidium enteritis, on treatment with nitazoxanide. 3. Diffuse colon thickening on CT scan at hospital presentation. The patient and her daughter do feel that the diarrhea has significantly slowed over the past couple of days. Note, the negative stool study results. Plan has not changed from a Gastroenterology standpoint. The patient declines any endoscopic investigation, especially as she feels she is doing better at this time. Gastroenterology will sign off again for now, please call back anytime with questions or concerns. Job ID: [id number]
[2018-07-22] MEDS: SODIUM CHLORIDE 0.9% IVPB SCH ×3 (01:08→17:48)
[2018-07-22] MEDS: ACYCLOVIR SODIUM IVPB SCH ×3 (01:08→17:48)
[2018-07-22] MEDS: Nystatin 500,000 UNITS/5 ML UDCUP SSW SCH ×4 (09:07→20:53)
[2018-07-22] MEDS: Digoxin 0.125 MG TAB PO SCH (09:08)
[2018-07-22] MEDS: Pantoprazole 40 MG VIAL IVP SCH (09:09)
[2018-07-22] MEDS: Enoxaparin Sodium 30 MG/0.3 ML SYRINGE SC SCH (09:13)
[2018-07-22] MEDS: Megestrol Acetate 800 MG/20 ML UDCUP PO SCH (20:52)
[2018-07-23] MEDS: ACYCLOVIR SODIUM IVPB SCH ×3 (02:46→17:54)
[2018-07-23] MEDS: SODIUM CHLORIDE 0.9% IVPB SCH ×3 (02:46→17:54)
[2018-07-23] MEDS: Digoxin 0.125 MG TAB PO SCH (09:06)
[2018-07-23] MEDS: Megestrol Acetate 800 MG/20 ML UDCUP PO SCH ×2 (09:07→22:02)
[2018-07-23] MEDS: Nystatin 500,000 UNITS/5 ML UDCUP SSW SCH ×4 (09:07→22:02)
[2018-07-23] MEDS: Enoxaparin Sodium 30 MG/0.3 ML SYRINGE SC SCH (09:10)
[2018-07-23] MEDS: Pantoprazole 40 MG VIAL IVP SCH (09:12)
[2018-07-23 11:02] VITALS: BMI 21.8
[2018-07-24] MEDS: ACYCLOVIR SODIUM IVPB SCH ×3 (02:49→18:10)
[2018-07-24] MEDS: SODIUM CHLORIDE 0.9% IVPB SCH ×3 (02:49→18:10)
[2018-07-24] MEDS: Megestrol Acetate 800 MG/20 ML UDCUP PO SCH ×2 (09:33→21:42)
[2018-07-24] MEDS: Nystatin 500,000 UNITS/5 ML UDCUP SSW SCH ×4 (09:33→21:44)
[2018-07-24] MEDS: Digoxin 0.125 MG TAB PO SCH (09:35)
[2018-07-24] MEDS: Enoxaparin Sodium 30 MG/0.3 ML SYRINGE SC SCH (09:37)
[2018-07-24] MEDS: Pantoprazole 40 MG VIAL IVP SCH (09:42)
--- NOTE | 2018-07-24 18:10 | PRG ---
DATE OF SERVICE: 07/24/2018 SUBJECTIVE: Still having diarrhea. The mouth is almost completely normal now. There are a few spots that need to finish healing. OBJECTIVE: VITAL SIGNS: Temperature is normal. LUNGS: Clear. HEART: S1, S2. Regular rate. ABDOMEN: Soft, not distended. LABORATORY DATA: White cell count is 11.5 five days ago, hemoglobin 10, platelets 413. Sodium 135, creatinine 0.6. She had a repeat C diff which was negative. ASSESSMENT AND DISCUSSION: Herpes simplex stomatitis, Cryptosporidium associated diarrhea, rheumatoid arthritis with lung infiltrates, with improvement in stomatitis, but persistence of diarrhea. If diarrhea does not improve, she will need endoscopic evaluation since she does have thickening of the bowel wall which is not typical of cryptosporidiosis. Job ID: [id number]
[2018-07-25] MEDS: SODIUM CHLORIDE 0.9% IVPB SCH (02:20)
[2018-07-25] MEDS: ACYCLOVIR SODIUM IVPB SCH (02:20)
[2018-07-25] MEDS: Digoxin 0.125 MG TAB PO SCH (09:11)
[2018-07-25] MEDS: Pantoprazole 40 MG VIAL IVP SCH (09:12)
[2018-07-25] MEDS: Enoxaparin Sodium 30 MG/0.3 ML SYRINGE SC SCH (09:12)
[2018-07-25] MEDS: Nystatin 500,000 UNITS/5 ML UDCUP SSW SCH ×4 (09:12→20:03)
[2018-07-25] MEDS: Megestrol Acetate 800 MG/20 ML UDCUP PO SCH ×2 (09:13→20:03)
[2018-07-25] MEDS: Acyclovir 400 mg Tablet PO SCH ×3 (10:31→20:03)
[2018-07-26 05:02] LABS: #Eosinphils 0.2 thou/uL (0.0-0.7); #Lymphocytes 1.2 thou/uL (1.20-3.40); #Monocytes 1.1 thou/uL (0.11-0.59); #Neutrophils 6.1 thou/uL (1.40-6.50); %Basophils 0.6 % (0.0-1.0); %Eosinophils 2.4 % (0.0-10.0); %Lymphocytes 14.4 % (21.0-51.0); %Monocytes 12.2 % (0.0-10.0); %Neutrophils 70.4 % (42.0-75.0); Hemoglobin 9.6 g/dL (12.0-16.0); Mean Corpuscular HGB CONC 30.5 g/dL (32.0-36.0); Mean Corpuscular Volume 88.7 fL (78.0-98.0); Mean Platelet Volume 7.2 fL (7.4-10.4); Platelet Count 376 thou/uL (130-400); RBC Distribution Width 20.3 % (11.5-14.5); Red Blood Cell (RBC) Count 3.56 mill/uL (4.20-5.40); White Blood Cell (WBC) Count 8.6 thou/uL (4.8-10.8)
[2018-07-26 05:19] LABS: Anion Gap 13 mmol/L (10-20); BUN (Urea Nitrogen) 10 mg/dL (9.8-20.1); Calc. Creatinine Clearance 68 mL/min (70-130); Calcium 7.7 mg/dL (7.8-10.44); Carbon Dioxide 15 mmol/L (23-31); Chloride 111 mmol/L (98-107); Estimated GFR-MDRD Greater than 90; Glucose 108 mg/dL (83-110); Potassium 4.5 mmol/L (3.5-5.1); Sodium 134 mmol/L (136-145)
[2018-07-26] MEDS: Digoxin 0.125 MG TAB PO SCH (09:28)
[2018-07-26] MEDS: Nystatin 500,000 UNITS/5 ML UDCUP SSW SCH ×4 (09:29→20:29)
[2018-07-26] MEDS: Acyclovir 400 mg Tablet PO SCH ×3 (09:29→20:29)
[2018-07-26] MEDS: Megestrol Acetate 800 MG/20 ML UDCUP PO SCH ×2 (09:30→20:29)
[2018-07-26] MEDS: Pantoprazole 40 MG VIAL IVP SCH ×3 (09:30→13:49)
[2018-07-26] MEDS: Enoxaparin Sodium 30 MG/0.3 ML SYRINGE SC SCH (09:31)
[2018-07-27] MEDS: Acyclovir 400 mg Tablet PO SCH ×3 (10:21→21:07)
[2018-07-27] MEDS: Nystatin 500,000 UNITS/5 ML UDCUP SSW SCH ×4 (10:21→21:08)
[2018-07-27] MEDS: Megestrol Acetate 800 MG/20 ML UDCUP PO SCH ×2 (10:22→21:07)
[2018-07-27] MEDS: Pantoprazole 40 MG VIAL IVP SCH (10:22)
[2018-07-27] MEDS: Digoxin 0.125 MG TAB PO SCH (10:22)
[2018-07-27] MEDS: Enoxaparin Sodium 30 MG/0.3 ML SYRINGE SC SCH (10:23)
[2018-07-28] MEDS: Acyclovir 400 mg Tablet PO SCH ×3 (09:30→20:40)
[2018-07-28] MEDS: Enoxaparin Sodium 30 MG/0.3 ML SYRINGE SC SCH (09:31)
[2018-07-28] MEDS: Megestrol Acetate 800 MG/20 ML UDCUP PO SCH ×2 (09:31→20:40)
[2018-07-28] MEDS: Digoxin 0.125 MG TAB PO SCH (09:31)
[2018-07-28] MEDS: Pantoprazole 40 MG VIAL IVP SCH (09:32)
[2018-07-28] MEDS: Nystatin 500,000 UNITS/5 ML UDCUP SSW SCH ×4 (09:32→20:40)
[2018-07-29] MEDS: Megestrol Acetate 800 MG/20 ML UDCUP PO SCH ×2 (09:58→21:02)
[2018-07-29] MEDS: Nystatin 500,000 UNITS/5 ML UDCUP SSW SCH ×4 (09:58→21:16)
[2018-07-29] MEDS: Digoxin 0.125 MG TAB PO SCH (10:01)
[2018-07-29] MEDS: Acyclovir 400 mg Tablet PO SCH ×3 (10:01→21:01)
[2018-07-29] MEDS: Enoxaparin Sodium 30 MG/0.3 ML SYRINGE SC SCH (10:10)
[2018-07-29] MEDS: Pantoprazole 40 MG VIAL IVP SCH (11:38)
[2018-07-29] MEDS: diphenhydrAMINE 25 MG CAP PO PRN (21:01)
[2018-07-29] MEDS: Metamucil PACK PO SCH (21:02)
[2018-07-30] MEDS: diphenhydrAMINE 25 MG CAP PO PRN ×2 (05:20→20:51)
[2018-07-30] MEDS: Metamucil PACK PO SCH ×2 (09:43→20:49)
[2018-07-30] MEDS: Nystatin 500,000 UNITS/5 ML UDCUP SSW SCH ×4 (09:43→20:48)
[2018-07-30] MEDS: Digoxin 0.125 MG TAB PO SCH (09:43)
[2018-07-30] MEDS: Megestrol Acetate 800 MG/20 ML UDCUP PO SCH ×2 (09:43→20:48)
[2018-07-30] MEDS: Acyclovir 400 mg Tablet PO SCH ×3 (09:44→20:48)
[2018-07-30] MEDS: Enoxaparin Sodium 30 MG/0.3 ML SYRINGE SC SCH (09:44)
[2018-07-31] MEDS: diphenhydrAMINE 25 MG CAP PO PRN ×3 (01:02→11:15)
[2018-07-31] MEDS: Digoxin 0.125 MG TAB PO SCH (08:20)
[2018-07-31] MEDS: Megestrol Acetate 800 MG/20 ML UDCUP PO SCH (08:21)
[2018-07-31] MEDS: Enoxaparin Sodium 30 MG/0.3 ML SYRINGE SC SCH (08:21)
[2018-07-31] MEDS: Metamucil PACK PO SCH (08:21)
[2018-07-31] MEDS: Acyclovir 400 mg Tablet PO SCH ×2 (08:21→14:08)
[2018-07-31] MEDS: Nystatin 500,000 UNITS/5 ML UDCUP SSW SCH ×2 (09:29→12:31)
[2018-07-31 16:16] VITALS: BP 107/65; TEMP 97.2
--- NOTE | 2018-08-01 14:35 | DIS ---
DATE OF ADMISSION: 07/07/2018 DATE OF DISCHARGE: 07/31/2018 CHIEF COMPLAINT ON ADMISSION: Severe dehydration with acute kidney injury, oral stomatitis, immunosuppression due to Plaquenil and methotrexate for rheumatoid arthritis, physical deconditioning, hyperkalemia, and acute kidney injury probably due to the severe dehydration. HOSPITAL COURSE: The patient was admitted to a medical bed. IV fluid resuscitation was begun. Nystatin oral suspension was initially used for the oral stomatitis. Oral supplements were begun for nutritional rehabilitation. DVT prophylaxis with Lovenox was provided. Physical and occupational therapy also were consulted. Over the next day, a CT of the abdomen and pelvis was performed, this showed pancolitis. The patient was seen by Dr. Adame and felt that atrial fibrillation would only need rate control. Dr. Rizo was asked to see the patient from infectious disease standpoint. He saw the patient on 07/09/2018 and he felt she had stomatitis, pancolitis, and was immunosuppressed from the Plaquenil and methotrexate. He began testing for herpes simplex, which came out positive and began treatment for such. Dr. Jay Sevilla saw her in GI consultation and agreed with the prophylactic treatment of C diff colitis until a stool could be obtained confirming such. Echocardiogram was performed, showing a 55% to 60% ejection fraction, severe tricuspid regurgitation, moderate aortic stenosis, moderate mitral regurgitation , and moderately dilated left atrium. The stool returned negative for C diff. She was started on NG tube about 07/10 for severe protein malnutrition. She has been on acyclovir for the herpes stomatitis, and she continued to have 3 to 4 liquid stools a day requiring placement of a rectal tube. Her stool ultimately came back positive for Cryptosporidium antigen, and for this, she was placed on nitazoxanide ( Alinia) [address] Jurado saw the patient for Gynecology opinion on the elevated CA-125 and ovarian mass noted. He felt that the elevated CA-125 was probably due the inflammation of her bowels and should be repeated on an outpatient basis and that of course the patient was too deconditioned to have any aggressive treatment at this time. As her stomatitis began to slowly improve, soft oral supplements were then given to the patient, but she maintains most of her nutrition via NG tube for the next week. She was remaining alert with stable vital signs throughout the week of 07/18, 07/19, 07/20, 07/21, and gradually after adding lidocaine gel, we were even able to provide more pain relief and greater oral supplementation. She remained with a steady amount of diarrhea requiring the persistent use of the rectal tube through 07/23, 07/24, 07/25. Finally, we able to begin getting her out of bed and eventually standing by 07/26. Stomatitis continuing to improve on a regular basis. By 07/28, she was able to eat enough food that we could hold the TPN, allowing us then to take the nasogastric tube out and her diet continued to improve. Her appetite was stimulated with megestrol. By 07/29, able to the eat all foods without pain. Diarrhea has begun to diminish. We were able to Hep-Lock her IV fluids and discontinue the rectal tube on 07/29, but on 07/30, she was much more alert and stronger. She did develop a rash. It was felt to be due to a sulfite containing soup that she drank the night before, it responded to Benadryl, we began placement. She was finally able to be discharged on in stable condition. 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 She was discharged, transferred to a long term for further rehabilitation. She was transferred in stable condition. Her diet will be as tolerated and physical therapy will be emphasized to treat her deconditioned state. She will follow up with Dr. Mann in 1 week. All her medications have been reconciled. She was transferred in stable condition. The time required to reconcile her medication, review the chart, examine the patient, debt management counselor the patient and her daughter came to 45 minutes. Job ID: [id number] [facility]
== END 2018-07-31 16:17 | DRG 385 ==
LOC: ERS 11:15 → ERHOLD 17:12 → 2NO 07-08 12:49 → SURG B 07-15 13:38
PROVIDERS: ADMIT Internal Medicine Nephrology; ATTEND Internal Medicine Nephrology
DX: K51.00 Ulcerative (chronic) pancolitis without complications (principal); E43 Unspecified severe protein-calorie malnutrition; J18.9 Pneumonia, unspecified organism; A07.2 Cryptosporidiosis; B00.2 Herpesviral gingivostomatitis and pharyngotonsillitis; N17.9 Acute kidney failure, unspecified; E87.2 Acidosis; E87.1 Hypo-osmolality and hyponatremia; E86.0 Dehydration; E87.5 Hyperkalemia; Z68.21 Body mass index [BMI] 21.0-21.9, adult; E03.9 Hypothyroidism, unspecified; M05.10 Rheumatoid lung disease with rheumatoid arthritis of unspecified site; K21.9 Gastro-esophageal reflux disease without esophagitis; R19.00 Intra-abdominal and pelvic swelling, mass and lump, unspecified site; I48.91 Unspecified atrial fibrillation; Z88.1 Allergy status to other antibiotic agents; Z88.0 Allergy status to penicillin; Z88.2 Allergy status to sulfonamides; Z88.8 Allergy status to other drugs, medicaments and biological substances; Z79.82 Long term (current) use of aspirin; Z79.899 Other long term (current) drug therapy
CPT/HCPCS: 36415; 51701; 71045; 74176; 76856; 80048; 80053; 81003; 82570; 83605; 83630; 83735; 84300; 84484; 85025; 86304; 87045; 87046; 87086; 87324; 87328; 87329; 87449; 87529; 87899; 93005; 93306; 96360; 96361; 96372; A4353; C9113; J0133; J1160; J1650; J1956; J2185; J7050; J7070; Q0163

== ENCOUNTER 2018-12-04 09:22 | Day surgery (SDC) | payer MEDICARE, OTHER ==
[2018-12-04] MEDS ORDERED: Sodium Chloride 0.9% 20 ML ONE (10:05)
[2018-12-04 16:08] VITALS: BP 169/75; TEMP 97.7
== END 2018-12-04 16:09 | disposition home or self-care (01) ==
LOC: ONC/OP 09:22
PROVIDERS: ATTEND Specialist
DX: D64.9 Anemia, unspecified (principal); Z88.0 Allergy status to penicillin; Z88.1 Allergy status to other antibiotic agents; Z88.2 Allergy status to sulfonamides; Z88.6 Allergy status to analgesic agent; Z88.8 Allergy status to other drugs, medicaments and biological substances
CPT/HCPCS: 36430; 86850; 86900; 86901; P9016

== ENCOUNTER 2019-01-03 12:06 | Outpatient (CLI) | payer MEDICARE, OTHER ==
--- NOTE | 2019-01-03 13:59 | RAD ---
XR Chest Pa Lat STANDARD HISTORY: Persistent cough, anemia COMPARISON: 07/16/2018 FINDINGS: The heart size is prominent but stable. The aorta is tortuous. There are bilateral pleural effusions , right larger than left with adjacent infiltrate/atelectatic changes. There is mild prominence of the pulmonary vascularity.
== END 2019-01-03 12:07 | disposition home or self-care (01) ==
LOC: BICRAD 12:06
PROVIDERS: ATTEND Nurse Practitioner Family
DX: D64.9 Anemia, unspecified (principal); R05 Cough
CPT/HCPCS: 71046

== ENCOUNTER 2019-02-05 09:14 | Outpatient (CLI) | payer MEDICARE, OTHER ==
--- NOTE | 2019-02-05 09:37 | RAD ---
Exam: Chest 2 views HISTORY:Dyspnea Comparison: None FINDINGS: Lungs: Persistent bibasilar densities Cardiac silhouette:Enlarged cardiac silhouette Pulmonary vessels: Mild central prominence Pleural Spaces: Moderate right pleural fluid, and mild left pleural fluid, similar appearing, radiogr aphically. Pneumothorax: None Osseous abnormalities: None of acuity. IMPRESSION: Stable chest, with persistent, right greater than left pleural effusions. Adjacent bibasilar atelectasis and/or pneumonia, similar.
== END 2019-02-05 09:15 | disposition home or self-care (01) ==
LOC: RAD 09:14
PROVIDERS: ATTEND Internal Medicine Critical Care Medicine
DX: R06.00 Dyspnea, unspecified (principal); J90 Pleural effusion, not elsewhere classified; J98.11 Atelectasis
CPT/HCPCS: 71046

== ENCOUNTER 2019-03-05 12:23 | Outpatient (CLI) | payer MEDICARE, OTHER ==
--- NOTE | 2019-03-07 10:04 | PFT ---
PATIENT HISTORY: HEIGHT: 64 IN WEIGHT: 133 SMOKER: NO HOW LONG: NA PACKS PER DAY: PRODUCTIVE COUGH: NO LUNG DISEASE: PHYSICIAN INTERPRETATION FINAL REPORT: Patient had fair effort and good cooperation. Patient UNABLE to use mouthpiece due to sores in the mouth, therefore a good seal was not obtained. PFT data: FVC 1.98 (80%), FEV1 1.43 (78%), FEV1/FVC 0.72. RV 0.71 (31%), TLC 8.65 (182%) DIFFUSION 5.82 (28%) There is a mild reduction the both FEV1 and FVC. The ratio is normal suggesting there is no evidence of obstructive air flow limitation. The expiratory limb of the flow volume loop has a normal contour. The residual volume is low and the total lung capacity is high. This is likely and artifact of poor mouth seal. Diffusion Capacity is severely impaired, but once again this could be an artifact poor seal. IMPRESSION: Overall, spirometry values are suggestive of mild restrictive process. Lung Volumes and Diffusion Capacity are likely artifact, though clinical correlation for restrictive processes or pulmonary vascular disorders should be considered. Care Manager: PASCUAL [employer]: PAS[employer]
== END 2019-03-05 12:24 | disposition home or self-care (01) ==
LOC: CP 12:23
PROVIDERS: ATTEND Internal Medicine Critical Care Medicine
DX: R06.02 Shortness of breath (principal)
CPT/HCPCS: 94060; 94727; 94729

== ENCOUNTER 2020-03-22 16:51 | Inpatient (IN) | payer MEDICARE, OTHER ==
[~2020-03-22 16:51] MED LIST: Heparin 1,000 UNITS/ML VIAL ONE
[2020-03-22 19:43] LABS: #Basophils 0.1 thou/uL (0.0-0.2); #Eosinphils 0.3 thou/uL (0.0-0.7); #Lymphocytes 1.1 thou/uL (1.20-3.40); #Neutrophils 5.5 thou/uL (1.40-6.50); %Basophils 0.9 % (0.0-1.0); %Eosinophils 3.4 % (0.0-10.0); %Lymphocytes 13.8 % (21.0-51.0); %Monocytes 12.5 % (0.0-10.0); %Neutrophils 69.4 % (42.0-75.0); Hemoglobin 11.8 g/dL (12.0-16.0); Mean Corpuscular Hemoglobin 27.6 pg (27.0-31.0); Mean Platelet Volume 7.8 fL (7.4-10.4); Platelet Count 240 thou/uL (130-400); RBC Distribution Width 19.2 % (11.5-14.5); Red Blood Cell (RBC) Count 4.29 mill/uL (4.20-5.40)
[2020-03-22 20:04] LABS: ALT (SGPT) 17 U/L (8-55); AST (SGOT) 27 U/L (5-34); Albumin 3.6 g/dL (3.4-4.8); Alkaline Phosphatase 271 U/L (40-110); Anion Gap 16 mmol/L (10-20); BUN (Urea Nitrogen) 33 mg/dL (9.8-20.1); CK (CPK) 83 U/L (29-168); Calc. Creatinine Clearance 0 mL/min (70-130); Carbon Dioxide 18 mmol/L (23-31); Chloride 97 mmol/L (98-107); Estimated GFR-MDRD 46; Globulin 2.6 g/dL (2.4-3.5); Glucose 88 mg/dL (83-110); Potassium 3.7 mmol/L (3.5-5.1); Protein, Total 6.2 g/dL (6.0-8.3); Sodium 127 mmol/L (136-145)
[2020-03-22] MEDS ORDERED: Furosemide 40 MG/4 ML VIAL ONE (20:45)
[2020-03-22] MEDS ORDERED: Cefepime 2 GM VIAL ONE (20:59)
--- NOTE | 2020-03-22 21:27 | RAD ---
CHEST ONE VIEW: Comparison: 07-16-2018, 02-05-2019 History: Dyspnea FINDINGS: Cardiomegaly and atherosclerosis. Bibasilar pleural effusion with parenchymal changes. Correlate for edema or infiltrate. Additional chronic changes in the lung parenchyma. Overall, lung volumes are dim inished. No pneumothorax or acute osseous abnormality. Calcification in the left upper quadrant flori tible with extensive atherosclerosis of the carotid artery. IMPRESSION: Congestive heart failure. Superimposed pneumonia or aspiration cannot be excluded. Continued surveill ance is recommended. POS: PPP
[2020-03-22] MEDS ORDERED: Vancomycin 1 GM/200 ML BAG ONE (21:29)
[2020-03-22 21:54] LABS: Bacteria/HPF None Seen HPF (None Seen); Bilirubin Negative (Negative); Blood, Urine Negative (Negative); Clarity Clear (Clear); Glucose, Urine (Dipstick) Normal (Negative); Ketone, Urine Negative (Negative); Leukocyte 25 Leu/uL (Negative); Nitrite Negative (Negative); Protein, Urine (Dipstick) Negative (Neg-Trace); RBC/HPF 0-3 HPF (0-3); Specific Gravity, Urine 1.011 (1.002-1.036); Squamous Epithelial 0-3 HPF (0-3); Urobilinogen Normal mg/dL (Less than 2); WBC/HPF 0-3 HPF (0-3); pH, Urine 5.5 (5.0-9.0)
[2020-03-22] MEDS ORDERED: Ondansetron ODT 4 MG TAB SL PRN (22:45)
[2020-03-22] MEDS ORDERED: Ondansetron PF 4 MG/2 ML Vial IVP PRN ×2 (22:45→22:56)
[2020-03-22] MEDS ORDERED: Acetaminophen 325 MG TAB PO PRN (22:56)
[2020-03-22] MEDS ORDERED: SODIUM CHLORIDE 0.45% IVPB SCH (23:00)
[2020-03-22] MEDS ORDERED: FUROSEMIDE IVPB SCH (23:00)
[2020-03-22 23:30] LABS: Troponin I 0.015 ng/mL (< 0.028)
[2020-03-22] MEDS: SODIUM CHLORIDE 0.45% IVPB SCH (23:35)
[2020-03-22] MEDS: FUROSEMIDE IVPB SCH (23:35)
--- NOTE | 2020-03-23 01:21 | HP ---
CHIEF COMPLAINT: Cellulitis to the lower extremities, orthopnea, and exacerbation of CHF. HISTORY OF PRESENT ILLNESS: The patient is an 85-year-old longterm patient, cared for by her daughter, who has noticed over the last several weeks increasing swelling in the lower extremities. She contacted Dr. Mann in his office on the week prior to admission, where the diuretics were doubled; however, these have been ineffective orally and the patient's edema has now gone above her knees into her pelvis and when she lies flat she cannot breathe and gurgles when she tries to take a deep breath. Patient denies chest pain, but is dyspneic. She is bed-bound and has noticed increasing redness, heat, and tenderness beneath her knees. When she came to the emergency room for evaluation, these were noted to be bright red and cultures were taken and antibiotics begun. Dr. Mann was then contacted concerning her other symptoms such as elevated BNP, indicative of her exacerbation of CHF, and her signs and symptoms of orthopnea. PAST MEDICAL HISTORY: Significant for hypothyroidism, previous history of atrial fibrillation that has now been stabilized and resolved per Dr. Adame. She has been taken off her anticoagulants because of history of GI bleed. She has GERD, history of gout, and history of hyperlipidemia. She has severe osteoporosis and rheumatoid arthritis. PAST SURGICAL HISTORY: Includes LASIK eye surgery, left 1st finger surgery, fracture of her left foot with subsequent surgery for that as well. PSYCHIATRIC HISTORY: Negative. SOCIAL HISTORY: Negative for smoking, drugs, or alcohol use and as previously mentioned, lives at home with her daughter. ALLERGIES: NUMEROUS INCLUDING ALENDRONATE, AMOXICILLIN, BACTRIM, CODEINE, FLOXIN, FOSAMAX, LEVAQUIN, MELOXICAM, PENICILLIN. MEDICATIONS ON ADMISSION: Include: 1. Levothyroxine 200 mcg daily. 2. Omeprazole 20 mg daily. 3. Lasix 40 mg q.a.m. 4. Potassium 10 mEq q.a.m. 5. Integra 125 mg b.i.d. 6. Hydroxychloroquine 300 mg daily. 7. Vascepa 1 g b.i.d. 8. Zetia 10 mg daily. 9. Allopurinol 300 mg q.h.s. 10. Arthritis Strength Tylenol at bedtime. 11. She occasionally will have bouts of recurrent herpes. When that occurs, acyclovir 800 mg t.i.d. is utilized. REVIEW OF SYSTEMS: At the time of admission: CONSTITUTIONAL: She denies weakness, general malaise, fever, chills. HEENT: Denies drainage or sores in her eyes, ears, nose, or throat. CHEST: Has dyspnea with trouble breathing when lying flat, but denies cough otherwise. CARDIOVASCULAR: Denies palpitations or chest pain. GI: Denies nausea, vomiting, or diarrhea. : Denies blood in urine or stool or dysuria. MUSCULOSKELETAL: Has generalized weakness in all her extremities with muscular wasting in all extremities. SKIN: Shows poor turgor. No acute lesions except in the lower extremities, which are bilaterally red, bright, hot, tender with 3+ edema bilaterally as well. NEUROLOGIC: Cranial nerves are intact. Mental status is clear. PHYSICAL EXAMINATION: VITAL SIGNS: At the time of admission, blood pressure is 115/65, pulse 93, respirations 16, temperature 98.1. Pain scale at 9/10 in the lower extremities with O2 saturation 98% on room air. GENERAL: This is an elderly female alert and responsive, who looks her stated age. HEENT: Diminished reactivity to light bilaterally with 1-2 mm pupils. Arcus senilis bilaterally. Sclera are nonicteric. TMs, nares, and pharynx are clear. NECK: Supple. Trachea midline. CHEST: Clear to auscultation. HEART: Regular rate and rhythm. BREAST: Deferred. ABDOMEN: Soft without organomegaly, nontender. : Deferred. EXTREMITIES: With muscular wasting in all the extremities, 3+ pitting edema up to the hips, but the redness and erythema are particularly beneath the knees bilaterally with hot, red, tender symptoms. NEUROLOGICAL: She is bedfast, alert, responsive, and cooperative. LABORATORY DATA: On admission shows WBCs at 8, hemoglobin 11.8, hematocrit 38.2 with platelets at 240. Sodium 127, potassium 3.7, chloride 97, CO2 18, BUN 33, creatinine 1.13 with a GFR of 46, glucose 88. Lactic acid 1.3. Liver functions unremarkable except for alkaline phosphatase, which was elevated at 271. BNP elevated at 290. Chest x-ray shows bilateral pleural effusions. ASSESSMENT: 1. Exacerbation of congestive heart failure. 2. Bilateral lower extremity cellulitis. 3. Hyponatremia. 4. Orthopnea as a symptom of exacerbation of congestive heart failure and bilateral pleural effusions. PLAN: Plan will be a Lasix drip, IV antibiotics, monitoring of electrolytes and replacement as needed with serial re-evaluation. Pain management will be with the Tylenol. We will continue her usual medicines. Time spent face to face with patient came to 40 minutes. Job ID: [id number] MTDD
[2020-03-23 02:12] LABS: Troponin I 0.017 ng/mL (< 0.028)
[2020-03-23] MEDS: Levothyroxine Sodium 100 MCG TAB PO SCH (06:21)
[2020-03-23 07:25] VITALS: BMI 19.1
[2020-03-23 08:56] LABS: SARS-CoV-2 MS2 Positive; SARS-CoV-2 N Gene Negative; SARS-CoV-2 S Gene Negative; SARS-CoV-2 by NAA Not Detected (NotDetected); SARS-CoV-2 orf1ab Negative
[2020-03-23] MEDS ORDERED: INTEGRA PO SCH (09:00)
[2020-03-23] MEDS: Hydroxychloroquine Sulfate 200 MG TAB PO SCH (11:02)
[2020-03-23] MEDS: Icosapent Ethyl 1 GM CAPSULE PO SCH ×2 (11:02→22:07)
[2020-03-23] MEDS: Potassium Chloride 10 MEQ TAB PO SCH ×2 (11:03→21:53)
[2020-03-23] MEDS: Metamucil PACK PO SCH (11:03)
[2020-03-23] MEDS ORDERED: Pantoprazole 40 MG VIAL ONE (11:04)
[2020-03-23] MEDS: Colchicine 0.6 MG TAB PO SCH ×2 (11:26→18:34)
[2020-03-23] MEDS: Ezetimibe 10 MG TAB PO SCH (11:26)
[2020-03-23 15:53] LABS: #Basophils 0.1 thou/uL (0.0-0.2); #Eosinphils 0.2 thou/uL (0.0-0.7); #Lymphocytes 1.3 thou/uL (1.20-3.40); #Monocytes 1.2 thou/uL (0.11-0.59); #Neutrophils 8.3 thou/uL (1.40-6.50); %Basophils 0.9 % (0.0-1.0); %Eosinophils 1.4 % (0.0-10.0); %Lymphocytes 11.7 % (21.0-51.0); %Monocytes 11.2 % (0.0-10.0); %Neutrophils 74.8 % (42.0-75.0); Hemoglobin 12.3 g/dL (12.0-16.0); Mean Corpuscular Hemoglobin 27.8 pg (27.0-31.0); Mean Corpuscular Volume 87.1 fL (78.0-98.0); Mean Platelet Volume 7.7 fL (7.4-10.4); Platelet Count 270 thou/uL (130-400); RBC Distribution Width 19.3 % (11.5-14.5); Red Blood Cell (RBC) Count 4.42 mill/uL (4.20-5.40); White Blood Cell (WBC) Count 11.1 thou/uL (4.8-10.8)
[2020-03-23 16:10] LABS: Anisocytosis SLIGHT = 6-15 cells (100X) (0-5/hpf); MDiff Complete? YES; Platelet Morphology Comment Appears Adequate
[2020-03-23 16:14] LABS: Anion Gap 16 mmol/L (10-20); BUN (Urea Nitrogen) 31 mg/dL (9.8-20.1); Calc. Creatinine Clearance 34 mL/min (70-130); Carbon Dioxide 19 mmol/L (23-31); Cardiac Risk 2.2 (Less than 4.5); Chloride 97 mmol/L (98-107); Cholesterol 110 mg/dl (< 200 Desired); Estimated GFR-MDRD 51; Glucose 114 mg/dL (83-110); HDL Cholesterol 51 mg/dL (>60 Neg Risk); LDL Cholesterol, Calculated 44 mg/dL; Potassium 3.4 mmol/L (3.5-5.1); Sodium 129 mmol/L (136-145); Triglycerides 77 mg/dL (Less than 150); Uric Acid 6.5 mg/dL (2.6-6.0)
[2020-03-23] MEDS ORDERED: Melatonin 3 MG TAB PO SCH (19:00)
[2020-03-23] MEDS: Melatonin 3 MG TAB PO SCH (21:54)
[2020-03-23] MEDS: Allopurinol 300 MG TAB PO SCH (21:54)
[2020-03-23] MEDS: Acetaminophen 500 MG TAB PO SCH (21:54)
[2020-03-23] MEDS: Vancomycin HCl 750 MG in Sodium Chloride 0.9% 250 ML 250 ML IVPB SCH (21:58)
[2020-03-24 04:25] LABS: #Basophils 0.1 thou/uL (0.0-0.2); #Eosinphils 0.2 thou/uL (0.0-0.7); #Lymphocytes 1.3 thou/uL (1.20-3.40); #Neutrophils 5.4 thou/uL (1.40-6.50); %Basophils 0.9 % (0.0-1.0); %Lymphocytes 15.9 % (21.0-51.0); %Monocytes 12.5 % (0.0-10.0); %Neutrophils 67.7 % (42.0-75.0); Hemoglobin 11.6 g/dL (12.0-16.0); Mean Corpuscular HGB CONC 32.1 g/dL (32.0-36.0); Mean Corpuscular Hemoglobin 28.1 pg (27.0-31.0); Mean Corpuscular Volume 87.5 fL (78.0-98.0); Mean Platelet Volume 7.7 fL (7.4-10.4); Platelet Count 248 thou/uL (130-400); RBC Distribution Width 19.5 % (11.5-14.5); Red Blood Cell (RBC) Count 4.12 mill/uL (4.20-5.40); White Blood Cell (WBC) Count 7.9 thou/uL (4.8-10.8)
[2020-03-24 04:49] LABS: Anion Gap 15 mmol/L (10-20); BUN (Urea Nitrogen) 37 mg/dL (9.8-20.1); Calc. Creatinine Clearance 32 mL/min (70-130); Calcium 8.4 mg/dL (7.8-10.44); Carbon Dioxide 18 mmol/L (23-31); Chloride 97 mmol/L (98-107); Estimated GFR-MDRD 48; Glucose 102 mg/dL (83-110); Potassium 3.4 mmol/L (3.5-5.1); Sodium 127 mmol/L (136-145)
[2020-03-24] MEDS: SODIUM CHLORIDE 0.45% IVPB SCH (05:13)
[2020-03-24] MEDS: FUROSEMIDE IVPB SCH (05:13)
[2020-03-24] MEDS: Levothyroxine Sodium 100 MCG TAB PO SCH (05:14)
--- NOTE | 2020-03-24 09:33 | RAD ---
CHEST 2 VIEWS: INDICATION: History of exacerbation of CHF. COMPARISON: Prior exam dated January 03, 2019. FINDINGS: There is cardiomegaly with pulmonary vascular congestion and small bilateral pleural effusion consist ent with CHF. There is airspace disease of both lobes suspicious for edema. Diffuse osteopenia is s imilar-appearing. IMPRESSION: Findings of congestive heart failure. POS: BH
[2020-03-24] MEDS: Potassium Chloride 20 MEQ TAB PO SCH ×2 (09:42→22:02)
[2020-03-24] MEDS: Furosemide 40 MG TAB PO SCH ×2 (09:42→14:32)
[2020-03-24] MEDS: Ezetimibe 10 MG TAB PO SCH (09:42)
[2020-03-24] MEDS: Colchicine 0.6 MG TAB PO SCH (09:42)
[2020-03-24] MEDS: Icosapent Ethyl 1 GM CAPSULE PO SCH ×2 (09:43→22:03)
[2020-03-24] MEDS: Metamucil PACK PO SCH (09:44)
[2020-03-24] MEDS: Hydroxychloroquine Sulfate 200 MG TAB PO SCH (09:44)
[2020-03-24] MEDS: Acetaminophen 500 MG TAB PO SCH (22:02)
[2020-03-24] MEDS: Melatonin 3 MG TAB PO SCH (22:03)
[2020-03-24] MEDS: Allopurinol 300 MG TAB PO SCH (22:03)
[2020-03-24] MEDS: Vancomycin HCl 750 MG in Sodium Chloride 0.9% 250 ML 250 ML IVPB SCH (22:04)
[2020-03-25] MEDS: Levothyroxine Sodium 100 MCG TAB PO SCH (06:07)
[2020-03-25] MEDS ORDERED: Iopamidol-370 76% 500 ML 1 ML ONE (08:51)
[2020-03-25 10:45] LABS: Anion Gap 15 mmol/L (10-20); BUN (Urea Nitrogen) 38 mg/dL (9.8-20.1); Calc. Creatinine Clearance 26 mL/min (70-130); Calcium 8.8 mg/dL (7.8-10.44); Carbon Dioxide 16 mmol/L (23-31); Chloride 97 mmol/L (98-107); Estimated GFR-MDRD 36; Glucose 106 mg/dL (83-110); Potassium 3.8 mmol/L (3.5-5.1); Sodium 124 mmol/L (136-145)
[2020-03-25] MEDS: Metamucil PACK PO SCH (11:43)
[2020-03-25] MEDS: Colchicine 0.6 MG TAB PO SCH (11:43)
[2020-03-25] MEDS: Potassium Chloride 20 MEQ TAB PO SCH ×2 (11:43→21:19)
[2020-03-25] MEDS: Icosapent Ethyl 1 GM CAPSULE PO SCH ×2 (11:43→21:19)
[2020-03-25] MEDS: Furosemide 40 MG TAB PO SCH ×2 (11:43→16:47)
[2020-03-25] MEDS: Ezetimibe 10 MG TAB PO SCH (11:43)
[2020-03-25] MEDS: Hydroxychloroquine Sulfate 200 MG TAB PO SCH (11:49)
--- NOTE | 2020-03-25 15:37 | SPC ---
Left upper extremity PICC placement sonographic guided HISTORY: Cellulitis. FINDINGS: After explaining the procedure and answering all questions, left upper extremity was preppe d and draped in usual sterile fashion. Sterile technique, buffered local anesthesia, sonographic guidance, and a 22-gauge needle were used t o carefully access the left basilic vein. Standard technique was used to place the tip of a 5 [place] single lumen PICC so that the tip lies at the level of the superior vena cava. Catheter was flushed and secured externally. Patient tolerated the procedure well and was returned in unchanged condition. IMPRESSION : Left upper extremity PICC is ready for use.
--- NOTE | 2020-03-25 16:04 | CT ---
CTA Angio Chest W WO Con 03/25/2020 3:40 PM Indication: 85-year-old female with concern for pulmonary embolus. History of CHF Technique: Multiple CTA images were obtained of the thorax with IV contrast. 3-D rendering: MIP thomas nstructed images were created and reviewed. Comparison: Chest radiograph dated March 24, [address] of the thorax dated October 17, 2017 Findings: Pulmonary arteries: No central or segmental pulmonary embolus is evident. Heart and Aorta: There is flattening of the interventricular septum with reflux of contrast within t he IVC and hepatic veins. There are severe vascular calcifications seen involving the visualized vasculature. Mediastinum:There is debris and fluid distending the esophagus. There is a moderate size hiatal herni a. Lungs:There is some airspace consolidation involving both lower lobes much of which is related to com pressive atelectasis. Pleural space: There is moderate right and small left pleural effusion Upper Abdomen: There is mild ascites within the upper abdomen. There are numerous calcified granulom a within the spleen. Osseous Structures: There is diffuse osteopenia. Soft tissues:No abnormality. Other findings:None. Impression: No central or segmental pulmonary embolus. Findings a moderate to prominent CHF. Debris and fluid distending the esophagus may reflect reflux or dysmotility. There is a moderate size hiatal hernia. Mild ascites within the upper abdomen .
[2020-03-25] MEDS ORDERED: DOBUTamine 500 mg/250 ml 250 ML IVPB SCH (17:45)
[2020-03-25 20:50] LABS: Vancomycin, Trough 14.6 ug/mL
[2020-03-25] MEDS: Acetaminophen 500 MG TAB PO SCH (21:18)
[2020-03-25] MEDS: Vancomycin HCl 750 MG in Sodium Chloride 0.9% 250 ML 250 ML IVPB SCH (21:19)
[2020-03-25] MEDS: Melatonin 3 MG TAB PO SCH (21:19)
[2020-03-25] MEDS: Allopurinol 300 MG TAB PO SCH (21:19)
--- NOTE | 2020-03-25 21:33 | CON ---
DATE OF CONSULTATION: 03/25/2020 INDICATION FOR CONSULTATION: An 85-year-old female, with right heart failure. HISTORY OF PRESENT ILLNESS: This is a very pleasant 85-year-old female, who is cared for by her daughter. I believe she lives in a nursing facility. She may live actually with a daughter now. She had been seen by me in the past. She underwent cardiac catheterization in March 2019, which showed no evidence of significant coronary artery disease. She did have some calcification. She had a normal ejection fraction. She also had a right heart catheterization done for suspicion of pulmonary hypertension. The right atrial pressure was 8 mmHg. The right ventricular pressure was 31/2 and the pulmonary artery pressure was 31/5. There was no evidence of significant pulmonary hypertension. She did have some mild pulmonary hypertension by echocardiogram. She had apparently been doing quite well and then was according to the daughter weeks ago or within the last 1 to 2 weeks, she has noticed increasing lower extremity edema. There was no shortness of breath or chest pain at least per the family. She was then seen by Dr. Mann and was admitted to the hospital. She did have an elevated BNP of 766. Repeat echocardiogram showed ejection fraction to be about 40% to 50%, with significant severe dilatation of the right ventricle and right atrium with what appeared to be some moderate aortic valve stenosis, severe tricuspid valve regurgitation. This is a significant change from previous echocardiogram that was done last year. She underwent a CT angiogram today which showed no evidence of pulmonary embolus. She does have a hiatal hernia and she had some atelectasis in bilateral lower lobes with a right pleural effusion and some congestion compatible with congestive heart failure, but no evidence of pulmonary emboli. It is unclear as to why she has developed significant right- sided failure with severe dilatation, which is actually compromising the left ventricle. PAST MEDICAL HISTORY: Significant for intermittent atrial fibrillation. She had been on Eliquis in the past, but apparently this was stopped due to some GI bleeding. She has a history of hypothyroidism, history of rheumatoid arthritis, and gastroesophageal reflux disease. She has history of gout as well as hyperlipidemia. She has severe osteoporosis and rheumatoid arthritis. She has undergone LASIK eye surgery. She has had her left first finger surgery. She has also has a left foot fracture. She correction by surgical procedure. SOCIAL HISTORY: There is no history of alcohol or tobacco abuse. She is now living at home with her daughter. ALLERGIES: SHE IS ALLERGIC TO ALENDRONATE, AMOXICILLIN, BACTRIM, FLOXIN, CODEINE, LEVAQUIN, FOSAMAX, MELOXICAM, AND PENICILLIN. MEDICATIONS: On admission include; 1. Levothyroxine. 2. Omeprazole. 3. Lasix 40 mg once a day, which had recently been increased and she did have some response, but still has some lower extremity edema, but the daughter says this is much better. 4. Potassium 10 mEq a day. 5. Integra 125 mg b.i.d. 6. Hydroxychloroquine 300 mg daily. She has been on this for quite some time. Uncertain of the etiology of why she is on hydroxychloroquine. 7. Vascepa 1 g b.i.d. 8. Zetia 10 mg a day. 9. Allopurinol 300 mg at bedtime. 10. Arthritis Strength Tylenol. 11. She takes p.r.n. acyclovir 800 mg t.i.d. REVIEW OF SYSTEMS: Please refer the notes already dictated. At this time, the lady is somewhat fatigued, but the daughter says she has been doing very well, except until just recently when she developed the lower extremity edema. There were no significant GI or complaints. MUSCULOSKELETAL: She is weak, but is able to ambulate with some assistance. NEUROLOGIC: No history of seizure or syncope and the daughter says that she does have some forgetfulness, but actually has been doing quite well. PHYSICAL EXAMINATION: GENERAL: Reveals an elderly female, who is apparently very fatigued at this time. VITAL SIGNS: Her temperature is 98.1, blood pressure 100/56, heart rate is 86 and regular at this time, and respiratory rate is 18. HEENT EXAMINATION: Shows the head to be normocephalic and atraumatic. Carotid pulses are present. I do not hear any significant bruits. She does have some JVD noted, but she is actually lying down at this time, but does have significant JVD. CHEST: Decreased breath sounds at the bases, otherwise no significant rales, rhonchi, or wheezing were noted. CARDIOVASCULAR: She does have a regular rate and rhythm at this time. She has a systolic murmur at the apex as well as in the lower sternal border, it is very soft. She also has a systolic murmur over the aortic area. There is S1, S2. I cannot hear any significant S3. ABDOMEN: Soft and nontender. Positive bowel sounds are present. EXTREMITIES: Show no significant clubbing or cyanosis. The lower extremities, below the knee, above the ankles have some erythema, but this also resolved with elevation of the legs. She also has some minimal edema. NEUROLOGICAL: The patient is apparently very fatigued. According to the daughter, after she came back for the CT angiogram, she has been extremely fatigued and actually it was somewhat difficult even to arouse, but is arousable, but then falls back asleep. LABORATORY DATA: Shows sodium 124, potassium is 3.8, BUN is 38, creatinine 1.38, bicarb is 16, and blood sugar is 106. WBC of 7.9, hemoglobin 11.6, and platelet count 246,000. Her BNP was 766. LDL was 44. TSH is 1.2. Echocardiogram shows severe dilatation of right atrium and right ventricle. Ejection fraction of 40% to 45%, maybe 50% in the left ventricle, but is compromised by the increased volume of the right ventricle compressing on the septum. She has severe tricuspid valve regurgitation, some thickness of the mitral valve leaflets. The CT scan showed no evidence of pulmonary embolus. IMPRESSION: 1. Right-sided heart failure of uncertain etiology. This could be due to showering of pulmonary emboli despite none being seen. Since the patient had been on Eliquis in the past, this medication was stopped due to some gastrointestinal bleeding. At this time, her hemoglobin remained stable. We will continue to monitor the patient. We will start her on low-dose dobutamine to see if we can increase the cardiac output. 2. History of mild coronary artery disease. She has no significant stenosis. 3. Mild aortic valve stenosis with some calcification, but there was no significant gradient across the valve at cardiac catheterization. 4. Rheumatoid arthritis. It will be dealt with by the Primary Care Service. 5. Lower extremity edema. At this time, we will decrease her Lasix back to once a day. Will also elevate the legs and hopefully with the addition of the dobutamine, the lower extremity edema will improve. Also, we will fluid restrict the lady since her sodium is 124. We will ask the heart failure executive business coach, Dr. Resendez, to visit with the patient to see if we have any further recommendations. We have discussed this patient already and further recommendations may follow. Job ID: [id number] MTDD
[2020-03-26 04:29] LABS: #Basophils 0.1 thou/uL (0.0-0.2); #Eosinphils 0.2 thou/uL (0.0-0.7); #Lymphocytes 1.1 thou/uL (1.20-3.40); #Monocytes 0.9 thou/uL (0.11-0.59); #Neutrophils 4.3 thou/uL (1.40-6.50); %Basophils 1.3 % (0.0-1.0); %Eosinophils 2.8 % (0.0-10.0); %Monocytes 13.8 % (0.0-10.0); %Neutrophils 65.1 % (42.0-75.0); Hemoglobin 10.8 g/dL (12.0-16.0); Mean Corpuscular HGB CONC 31.9 g/dL (32.0-36.0); Mean Corpuscular Hemoglobin 27.9 pg (27.0-31.0); Mean Corpuscular Volume 87.4 fL (78.0-98.0); Mean Platelet Volume 7.7 fL (7.4-10.4); Platelet Count 235 thou/uL (130-400); RBC Distribution Width 19.2 % (11.5-14.5); Red Blood Cell (RBC) Count 3.88 mill/uL (4.20-5.40); White Blood Cell (WBC) Count 6.6 thou/uL (4.8-10.8)
[2020-03-26 04:49] LABS: Anion Gap 15 mmol/L (10-20); BUN (Urea Nitrogen) 41 mg/dL (9.8-20.1); Calc. Creatinine Clearance 26 mL/min (70-130); Calcium 8.5 mg/dL (7.8-10.44); Carbon Dioxide 20 mmol/L (23-31); Chloride 100 mmol/L (98-107); Estimated GFR-MDRD 36; Glucose 94 mg/dL (83-110); Magnesium 1.9 mg/dL (1.6-2.6); Potassium 4.1 mmol/L (3.5-5.1); Sodium 131 mmol/L (136-145)
[2020-03-26] MEDS: Levothyroxine Sodium 100 MCG TAB PO SCH (05:10)
[2020-03-26] MEDS ORDERED: Zolpidem Tartrate 5 MG TAB PO PRN (08:22)
[2020-03-26] MEDS: Megestrol Acetate 800 MG/20 ML UDCUP PO SCH ×2 (08:48→21:21)
[2020-03-26] MEDS: Hydroxychloroquine Sulfate 200 MG TAB PO SCH (08:49)
[2020-03-26] MEDS: Furosemide 40 MG TAB PO SCH (08:49)
[2020-03-26] MEDS: Metamucil PACK PO SCH (08:49)
[2020-03-26] MEDS: Colchicine 0.6 MG TAB PO SCH (08:49)
[2020-03-26] MEDS: Ezetimibe 10 MG TAB PO SCH (08:49)
[2020-03-26] MEDS: Potassium Chloride 20 MEQ TAB PO SCH ×2 (08:50→21:22)
[2020-03-26] MEDS: Icosapent Ethyl 1 GM CAPSULE PO SCH ×2 (08:50→21:22)
--- NOTE | 2020-03-26 08:57 | CON ---
DATE OF CONSULTATION: 03/25/2020 SERVICE: Advanced Heart Failure/Transplant Cardiology Consult Service. REASON FOR CONSULT: Referral for right ventricular failure. HISTORY OF PRESENT ILLNESS: Ms. Barbie Rosenbaum, 85-year-old lady with long-standing history of rheumatoid arthritis and disfigurement, was admitted for increasing edema from the waist on down. In July of 2018, she had extensive hospitalization for stomatitis and also mucositis. She was treated for candidiasis and also bacterial infection, eventually resolved with a long one month rehabilitation. She was able to go home. She walked on a walker. Eventually, she was able to walk without a walker. She seemed to be doing well in general. In March 2019, a right heart catheterization was done. It was reported her PA systolic pressure was only about 31 mmHg at that time. She continued to do well. She was able to walk short distances, this including walking around her house, walking to the car. She lives with her daughter at her house. She seemed to be having a normal life. However, around January to February, things began to deteriorate. She was notably weaker after blood draw on February 16. Perhaps, it was something else and then she did develop slight cough. She then also developed edema of the lower extremities. Her primary care, Dr. Adi Mann, prescribed Lasix 40 mg. She was taking one 40 mg tablet once a day, and if needed a tablet and a half. However, in the last week and a half before admission, she needed to take two Lasix tablets and that was not sufficient. Her edema went from her feet, went up to her knee, went up to her thighs, started going to her hip. It got to the point that it became quite uncomfortable that she came in to seek care. Since being in the hospital, she also developed possible cellulitis and redness from her feet onto her knee. She was also treated with antibiotics, combination of diuretics, antibiotics relieves her symptoms. However, her blood pressure decreased. Her BUN and creatinine increased. She also was found to be hypoxic. She does not use oxygen at home. Now, she requires between 2-3 L of oxygen via nasal cannula to keep oxygen saturation above 92%. From a distance she appeared to be disfigured from rheumatoid arthritis. However, upon engagement, she conversed well and can answer all the questions correctly. Her daughter is an excellent historian, her daughter's name is Huyen Rosenbaum, combination of her daughter and herself provided most of the history. PAST MEDICAL HISTORY: Includes, 1. Rheumatoid arthritis. 2. Paroxysmal atrial fibrillation. 3. History of hypertension. 4. Stomatitis and mucositis. 5. Hypothyroidism. 6. GERD. SOCIAL HISTORY: 1. She never smoked. 2. She does not drink alcohol. 3. She does not use illicit drugs. 4. She lives at her house with her daughter, Huyen Rosenbaum. FAMILY HISTORY: Being age 85 at this point, her family history is noncontributory. BRIEF REVIEW OF SYSTEMS: GENERAL: She became more fatigued and edematous in the last 2 weeks before admission. HEENT: There is no change in vision, hearing, or swallowing. However, with initiation of oxygen, her eyes have became much more dry. PULMONARY: Please see HPI, consists of increasing cough. CARDIAC: There is no complaint of palpitation, chest pains, or syncope. GI: Currently there is no complaint of nausea, vomiting, or diarrhea. : I believe that she is incontinent. MUSCULOSKELETAL: She has both severe rheumatoid arthritis and osteoarthritis, so she has multiple joint pains that limits her movement. She also has deformed hands. INTEGUMENT: There is no new report of skin breakdown. NEUROLOGIC: There are no focal deficits or weaknesses. MEDICATIONS: Her current medications include, 1. Allopurinol 300 mg each night. 2. Colchicine 0.6 mg in the morning. 3. Zetia 10 mg daily. 4. Furosemide 40 mg daily. 5. Hydroxychloroquine 300 mg daily. 6. Levothyroxine, which is Synthroid 200 mcg daily. 7. Melatonin 6 mg each night. 8. Vascepa 1 g twice a day. 9. Protonix 40 mg daily. 10. Integra 125 mg twice a day. 11. K-Dur 20 mEq b.i.d. 12. Psyllium hydrophilic, which is Metamucil one pack a day daily. 13. Vancomycin currently at 750 mg each night. PHYSICAL EXAMINATION: She is in sinus rhythm with much PACs, so she has a lot of PACs that can appear quite random. VITAL SIGNS: Heart rate 86, blood pressure 100/56. Upon examination, she is on 3 L nasal cannula, saturating at 93%. GENERAL: She is sleepy, but then she wakes up well. She is contracted and deformed due to severe rheumatoid arthritis and osteoarthritis; however, she can converse, has a good mind, and she can engage well. HEENT: EOMI. Oropharynx with moist mucosa. NECK: Her JVP is very elevated about 18 cm it is right at mid or high earlobe. There are very engorged jugular veins. PULMONARY: There is good air movement in the top half. However, lung sounds are diminished in lower half. CARDIAC: There is prominent right ventricular heave. There is 2/6 holosystolic murmur at the left sternal border, this corresponded to tricuspid regurgitation. ABDOMEN: Slightly distended, soft, nontender. Positive bowel sounds. EXTREMITIES: There is pitting edema, about 0.5 cm from her feet up onto her knees and there is pitting edema around her thighs. LABORATORY DATA: Her CBCs showed white cell count 7.9, hemoglobin 11.6, platelets of 248. However, there is increased monocyte percentage of 12.5%, but decreased lymphocyte percentage at 5.9%. Her chemistry shows that sodium 124, potassium 3.8, chloride 97, bicarb is 16, BUN is 38, creatinine 1.38, and BNP is elevated at 766. Her TSH is normal at 1.2. Her echocardiogram from March 24, 2020 was reviewed. 1. She has extremely dilated right ventricle about three times the size of the left ventricle, it is pressing on the left ventricle. 2. She also has extremely dilated right atrium. 2. There is severe tricuspid regurgitation, it seems like her tricuspid valve do not oppose. 3. On short axis view, there is D-shaped septum with the right ventricle definitely pushing into the left ventricle. 4. It is difficult to truly estimate her LVEF due to her right ventricle pushing the left with her left ventricle EF at least 50%. Thus, her echocardiograms suggest severe right heart failure/cor pulmonale. CT scan for pulmonary embolism was done. However, there is no pulmonary embolism. On the same CT scan, there are ground-glass opacities, there is infiltrate, so there is currently inflammatory process ongoing in the lungs. ASSESSMENT: 85-year-old lady is suffering from right heart failure/cor pulmonale caused by development of severe pulmonary hypertension in surprisingly a short period of time. Since her right heart catheterization was normal in March 2019, thus her pulmonary hypertension and right heart failure developed within the last 10 months. The severe increase in pulmonary vascular resistance caused dilation and right heart failure. This then led to ascites and lower extremity edema. She has reached the limit of what one can do with diuretics alone. At this point, she will need inotrope therapy to augment her right ventricle to push the blood to the left ventricle to perfuse her organs. She will need to have definitive therapy for her pulmonary hypertension. This will require right heart catheterization and set of labs in order to challenge to see if she would respond to nitric oxide challenge. Pulmonary hypertension treatment is not in the realm of [facility]. Thus, we will need to refer Ms. Rosenbaum to a different center. This was communicated to Ms. Rosenbaum and her daughter, Huyen. They both agreed and want to go to a center for this to be treated. Ms. Rosenbaum was walking before this occurred as late as early February. For now, she will need augmentation of her right ventricle. Please see the following for my recommendations. RECOMMENDATIONS: 1. Start dobutamine at 2.5 mcg/kg/minute. May titrate up to 5 mcg/kg/minute as needed. 2. Please check her magnesium to make sure it is above 2, this is to prevent atrial fibrillation to recur. 3. She has begun to dry out now with a rise in BUN and creatinine at this point, so reduce Lasix to 40 mg p.o. one day. 4. I will initiate contact with [facility] to arrange for transfer. Currently accepting doctor is Dr. Parmjit Davies. 5. Please keep her oxygen saturation above 92%. She will need to keep her pulmonary arteries as open as possible. It has been a pleasure taking care of Ms. Rosenbaum. If any questions, please give me a call. This visit took 75 minutes. This includes personally performing history and physical, counseling and explaining the process and diagnosis to the patient and her daughter, coordinating care with fellow cardiac cath lab manager and primary team and reading echocardiogram, and coordinating care with [facility]. Job ID: [id number] MTDD
[2020-03-26] MEDS ORDERED: DOBUTamine 500 mg/250 ml 250 ML IVPB SCH (11:15)
[2020-03-26] MEDS ORDERED: Magnesium 2 GM/50 ML 2 GM in Premix Bag 1 BAG IVPB SCH (11:15)
--- NOTE | 2020-03-26 12:07 | PRG ---
DATE OF SERVICE: 03/26/2020 SUBJECTIVE: Ms. Rosenbaum had a good night. She felt a bit more energetic with dobutamine. However, she has been restless at night. This is consistent with her last several nights. Eventually, she went to sleep this morning. A conversation took place between here and also [facility]. They agreed to take care for diagnosis and treatment of pulmonary hypertension and right ventricular failure. This morning, it looks like she is waiting for a bed assignment. Most likely, once a bed assignment is made, the patient will be transferred. REVIEW OF SYSTEMS: Not done because the patient was asleep. MEDICATIONS: Include, 1. Allopurinol 300 mg daily. 2. Colchicine 0.6 mg daily. 3. Dobutamine currently at 2.5 mcg/kg/minute. 4. Zetia 10 mg daily. 5. Furosemide 40 mg daily. 6. Hydroxychloroquine 300 mg daily. 7. Levothyroxine (Synthroid) 200 mcg daily. 8. Megace 20 mg b.i.d. was added. 9. Melatonin 6 mg at night. 10. Vascepa 1 g b.i.d. 11. Protonix 40 mg daily. 12. K-Dur 20 mEq b.i.d. 13. Metamucil 1 packet daily. 14. Vancomycin 750 mg daily. 15. Ambien 5 mg at bedtime p.r.n. OBJECTIVE: TELEMETRY: Reviewed. It is a combination of sinus rhythm, PACs, and small PVCs. VITAL SIGNS: Her heart rate is about 93, the systolic blood pressure today 90 to 101. At exam, her heart rate was 88 and blood pressure 95/54. She is using 3 L of oxygen by nasal cannula and saturating 93%. GENERAL: She is sleepy. However, she is well, following instructions and commands, then goes back to sleep. HEENT: Head is atraumatic. Oropharynx is benign with moist mucosa. NECK: Her JVP is very elevated, about 15 cm JVP at the mid ear level. PULMONARY: She has diminished breath sounds, worse on the right than the left. CARDIAC: Most of time is regular rate and rhythm with normal S1 and S2. There is loud 3/6 holosystolic murmur at the left sternal border. There is also 2/6 holosystolic murmur at the apex. She has significant right ventricular heave. ABDOMEN: Soft and nontender. Positive bowel sounds. EXTREMITIES: There is 0.5 cm pitting edema below her hips about her thighs and then there is some 0.5 cm pitting edema at her feet about two-thirds way up towards knee. LABORATORY VALUES: This morning, white cell count 6.6, hemoglobin 10.8, platelets 235. Her chemistry shows sodium 131, potassium 4.1, BUN 41, and creatinine is steady at 1.39. Her I's and O's are not accurate. ASSESSMENT: 85-year-old female is holding steady with dobutamine augmentation for her right ventricular failure due to pulmonary hypertension. She could use a little bit more dobutamine to augment her right ventricle to left ventricle flow. Her creatinine is now holding steady. Her sodium has improved to showing that she is having good active diuresis. Her principal problem is right ventricular failure due to pulmonary hypertension/cor pulmonale. She also has rheumatoid arthritis contributed. She has undiagnosed pulmonary disease that is causing her to be hypoxic. This needs to be diagnosed. It could be her rheumatoid arthritis causing lung problems. It also could be an autoimmune inflammatory process. This will need to be deciphered. Currently, the objective is to improve her right ventricular function and we will defer and transfer her to [facility] for her pulmonary hypertension and lung diagnosis. RECOMMENDATIONS: 1. Increase dobutamine to 5 mcg/kg/minute. 2. Please give magnesium sulfate 2 g IV one dose now. 3. Coordinated with her daughter, Huyen Rosenbaum. There is a chance that she will go to [facility] this afternoon or this evening. It has been a pleasure taking care of Ms. Rosenbaum. If you have any questions, please give me a call. Time for this visit is 30 minutes. This includes personally performing history and physical, reading telemetry, evaluating labs, and coordinating care with her daughter and external center of [facility]. Job ID: [id number] MTDD
[2020-03-26 20:24] LABS: Vancomycin, Random 17.6 ug/mL (See Comment)
[2020-03-26] MEDS: Allopurinol 300 MG TAB PO SCH (21:22)
[2020-03-26] MEDS: Acetaminophen 500 MG TAB PO SCH (21:22)
[2020-03-26] MEDS: Melatonin 3 MG TAB PO SCH (21:22)
[2020-03-26] MEDS: Vancomycin HCl 750 MG in Sodium Chloride 0.9% 250 ML 250 ML IVPB SCH (21:23)
[2020-03-27 04:37] LABS: #Basophils 0.1 thou/uL (0.0-0.2); #Eosinphils 0.2 thou/uL (0.0-0.7); #Monocytes 0.8 thou/uL (0.11-0.59); #Neutrophils 4.1 thou/uL (1.40-6.50); %Basophils 1.2 % (0.0-1.0); %Eosinophils 3.6 % (0.0-10.0); %Lymphocytes 16.1 % (21.0-51.0); %Monocytes 12.9 % (0.0-10.0); %Neutrophils 66.2 % (42.0-75.0); Mean Corpuscular HGB CONC 31.4 g/dL (32.0-36.0); Mean Corpuscular Hemoglobin 27.5 pg (27.0-31.0); Mean Corpuscular Volume 87.6 fL (78.0-98.0); Mean Platelet Volume 7.3 fL (7.4-10.4); Platelet Count 213 thou/uL (130-400); RBC Distribution Width 18.9 % (11.5-14.5); Red Blood Cell (RBC) Count 3.99 mill/uL (4.20-5.40); White Blood Cell (WBC) Count 6.2 thou/uL (4.8-10.8)
[2020-03-27 04:58] LABS: Anion Gap 16 mmol/L (10-20); BUN (Urea Nitrogen) 46 mg/dL (9.8-20.1); Calc. Creatinine Clearance 28 mL/min (70-130); Calcium 8.7 mg/dL (7.8-10.44); Carbon Dioxide 21 mmol/L (23-31); Chloride 101 mmol/L (98-107); Estimated GFR-MDRD 35; Glucose 96 mg/dL (83-110); Magnesium 2.4 mg/dL (1.6-2.6); Potassium 4.7 mmol/L (3.5-5.1); Sodium 133 mmol/L (136-145)
[2020-03-27] MEDS: Levothyroxine Sodium 100 MCG TAB PO SCH (05:43)
[2020-03-27] MEDS: Megestrol Acetate 800 MG/20 ML UDCUP PO SCH (09:24)
[2020-03-27] MEDS: Ezetimibe 10 MG TAB PO SCH (09:25)
[2020-03-27] MEDS: Potassium Chloride 20 MEQ TAB PO SCH (09:25)
[2020-03-27] MEDS: Icosapent Ethyl 1 GM CAPSULE PO SCH (09:27)
[2020-03-27] MEDS: Furosemide 40 MG TAB PO SCH (09:27)
[2020-03-27] MEDS: Hydroxychloroquine Sulfate 200 MG TAB PO SCH (09:28)
[2020-03-27] MEDS: Metamucil PACK PO SCH (09:28)
[2020-03-27] MEDS: Colchicine 0.6 MG TAB PO SCH (09:28)
[2020-03-27] MEDS ORDERED: Albuterol Sulfate 2.5 mg/3 ml Neb NEB SCH (13:00)
--- NOTE | 2020-03-27 15:16 | RAD ---
EXAM: Chest one view: HISTORY: Wheezing, dyspnea COMPARISON: 03/22/2020 FINDINGS: Heart size: Persistent cardiomegaly. Lungs: Patchy increased markings in the bases probably some compressive atelectasis. Left PICC line. Bilateral pleural effusions. IMPRESSION: Evidence for congestive heart failure. Overall stable chest. Continued short-term follow-up.
--- NOTE | 2020-03-27 15:27 | PRG ---
DATE OF SERVICE: 03/27/2020 SERVICE: Advanced Heart Failure and Transplant Cardiology Service. SUBJECTIVE: Ms. Rosenbaum had a variable day, yesterday was good. She was to rest well, breathe well, eat and be interactive. However, she was not able to get too much of sleep. She only got about 3 hours. This morning, they attempted to give her big breakfast. She became nauseated and vomited. After that, she was not doing very well. The nurse also noted that she seemed to have increased wheezing, which is new for her. Most of the information was related by her daughter, Huyen Rosenbaum. Ms. Rosenbaum does interact and she does talk at a reduced rate. REVIEW OF SYSTEMS: GENERAL: There is no fever, chills, but she does cough. HEENT: There is no change in vision, hearing, or swallowing. PULMONARY: Please see HPI. CARDIAC: There is no chest pain, palpitations, or syncope. GI: Please see HPI. : She is incontinent. MUSCULOSKELETAL: She has severe rheumatoid and also osteoarthritis, she is contracted. INTEGUMENT: There are no reports of new skin breakdown. NEUROLOGIC: There are no new reports of focal deficits or weaknesses. CURRENT MEDICATIONS: 1. Allopurinol 300 mg at bedtime. 2. Metamucil one pack a day daily. 3. CellCept 1 g b.i.d. 4. Vitamin E 400 units daily. 5. Ascorbic acid 1000 mg daily. 6. Cholecalciferol 3000 units daily. 7. Chlorhexidine gluconate mouthwash as needed. 8. Potassium chloride 10 mEq daily. 9. Furosemide 40 mg daily. 10. Zetia 10 mg daily. 11. Levothyroxine 200 mcg daily. 12. Multivitamin one tablet daily. 13. Omeprazole 20 mg daily. 14. Coenzyme Q 100 mg daily. PHYSICAL EXAMINATION: VITAL SIGNS: Telemetry was reviewed. She is missing sinus rhythm, just PACs. Her blood pressure is 100/66, but later on increased to 120/68. GENERAL: She is actually alert and conversational, lying in bed. However, she is breathing heavily through her nose. HEENT: EOMI. Oropharynx with moist mucosa. NECK: JVP is elevated to her earlobe, so this piece 14 cm is a bit higher than yesterday. PULMONARY: She has wheeze more prominent in the left base. There are also some crackles, more prominent left base. CARDIAC: Regular rate and rhythm. Normal S1, S2. There is a loud 3/6 holosystolic murmur at the left sternal border. There is also 2/6 holosystolic murmur at the apex and 2/6 holosystolic murmur at left upper sternal border She has significant right ventricular heave. ABDOMEN: Soft, nontender. Positive bowel sounds. EXTREMITIES: However, there is pitting edema about her hips. There is 0.5 cm pitting edema about her feet to about one-quarter way towards the knees. Thus, she is edematous. LABORATORY VALUES: Sodium 133, potassium 4.7, chloride 101, bicarbonate 21, her BUN is a little more elevated at 46, creatinine 1.43. ASSESSMENT: 85-year-old lady continues to suffer from right ventricular failure. The RV failure is likely due to pulmonary hypertension secondary to a primary pulmonary issue. At this time, it is likely due to rheumatoid arthritis. This has caused pulmonary hypertension that cause right ventricular failure/cor pulmonale. Today, she is wheezing a bit. She may have aspirated. We will do a chest XRay to follow this. We will also initiate albuterol to help her to clear her lungs. I will also consider using a second dose of furosemide to decrease her edema. For now, we are awaiting transfer to [facility] for definitive therapy. Please face off following. RECOMMENDATIONS: 1. Continue dobutamine at 5 mcg/kg/minute. 2. Please provide albuterol nebs every 6 hours by RT. 3. At about 3 or 4 p.m. today, we will do furosemide 40 mg IV one dose. This did help to decongest her. 4. If needed, solumedrol 60 mg IV one dose in the afternoon 5. We will continue to update [facility] about her status and let them know that the telemetry bed will be okay. It has been a pleasure taking care of Ms. Rosenbaum. If you have any questions, please give me a call. Visitation duration is 40 minutes today. Job ID: [id number] MTDD
[2020-03-27] MEDS ORDERED: Furosemide 40 MG/4 ML VIAL SLOW IVP SCH (16:00)
[2020-03-27] MEDS ORDERED: methylPREDNISolone Sod Succ 40 MG VIAL IVP SCH (16:00)
[2020-03-27 16:14] VITALS: BP 117/59; TEMP 97.6
[2020-03-27] MEDS ORDERED: Ondansetron ODT 4 MG TAB PO SCH (17:00)
[2020-03-27] MEDS ORDERED: Vancomycin HCl 750 MG in Sodium Chloride 0.9% 250 ML 250 ML IVPB SCH (21:00)
[2020-03-27] MEDS ORDERED: Zolpidem Tartrate 5 MG TAB PO SCH (21:00)
--- NOTE | 2020-03-28 15:29 | EKG ---
Test Reason : Blood Pressure : / mmHG Vent. Rate : 087 BPM Atrial Rate : 079 BPM P-R Int : 000 ms QRS Dur : 096 ms QT Int : 396 ms P-R-T Axes : 000 117 -56 degrees QTc Int : 476 ms Normal sinus rhythm Septal infarct , age undetermined Lateral infarct , age undetermined Abnormal ECG Confirmed by CASSIE GARCIA, MATILDE Felix ([id number]), digital editor KEAGAN PERSAUD ([id number]) on 03/28/2020 3:28:57 PM Referred By: Confirmed By:MATILDE MATTHEWS MD
--- NOTE | 2020-03-30 13:42 | DIS ---
DATE OF ADMISSION: 03/22/2020 DATE OF DISCHARGE: 03/27/2020 DATE OF TRANSFER TO [facility]: 03/27/2020. CHIEF COMPLAINT ON ADMISSION: Cellulitis of the lower extremities, orthopnea with exacerbation of CHF and edema up to her waist. HOSPITAL COURSE: The patient was placed in a telemetry bed, where aggressive diuresis was begun. Dr. Adame saw the patient initially in consultation and then asked Dr. Gordo Resendez to come in to further assist in her diuresis and management. He quickly recognized that she had developed a significant right heart failure in the last 10 months and recommended that she receive definitive therapy at a location that could provide that type of intervention. The patient and her mother were both agreeable to be transferred to [facility] and she was accepted by Dr. Parmjit Davies and then it became a matter of waiting for a bed open up over the next 24 hours, she continued to do well. Her celluitis responded to IV therapy quite well. The bed was still not available until finally on 03/27, she was able to be transferred to [facility]. She was transferred in stable condition. DIAGNOSES AT THE TIME OF TRANSFER: 1. right ventricular heart failure. 2. Severe tricuspid regurgitation and cor pulmonale 3. Cellulitis and resolution of the lower extremity The time it took to review the chart, branch credit counselor the patient and her daughter, took about 40 minutes with 20 minutes of that being [id number] time. She had her questions answered, medicines reconciled and she was discharged in stable condition. Job ID: [id number] MTDD
--- NOTE | 2020-03-31 12:24 | PQF ---
CLINICAL DOCUMENTATION CLARIFICATION FORM: Dear : Gordo Resendez Date / Time: 03/31/2020 Please exercise your independent, professional judgment in responding to the clarification form. Clinical indicators are provided on the bottom of this form for your revieW Please check appropriate box(es): HEART FAILURE: A. ACUITY [ ] Acute [ X ] Acute on Chronic [ ] Chronic B. TYPE: [ ] Systolic / HFrEF [ ] Diastolic / HFpEF [ ] Combined Systolic / Diastolic [ ] Hypertensive Heart and Kidney disease [ ] Hypertensive Heart Disease [ ] Hypertensive Kidney Disease [ ] Other diagnosis (Please specify if any) [ ] Unable to determine [X] Right heart failure/Cor pulmonale In addition, please specify: Present on Admission (POA): [ ] Yes [ ] No [ ] Unable to determine Physician Signature: Date/Time: For continuity of documentation, please document condition throughout progress notes and discharge summary. Thank You. To be completed by CDI/Coding staff for physician review: Present Clinical Indicators - Signs / Symptoms / Labs Results and Location in Medical Record [ X] Ejection Fraction =____45_ % 03/24/20 Echo [ X ] Dyspnea, Hypoxia [x] Peripheral edema-pitting edema from bilateral feet to bilateral hips ED provider report on 03/22 [x] CHF exacerbation, fluid overload ED provider report on 03/22 [x] Orthopnea as a symptom of exacerbation of congestive heart failure and bilateral pleural effusions H&P on 03/23 [x] Right sided heart failure Consult on 03/25 [ ] Elevated BNP 766.1 h Laboratory on 03/24 [ X ] JVD [x] Shortness of breath ED provider report on 03/22 [x] Bilateral pleural effusion with parenchymal changes correalte for edema and infiltrate Chest x ray on 03/23 [ ] CXR results [ ] Arrhythmia--tachycardia Present Risk Factors Results and Location in Medical Record [x] History of atrial fibrillation H&P on 03/23 [ ] CKD Hypertension [ ] History of [place] Present Treatments Results and Location in Medical Record [ ] Administration of AL / ARB / BB [ X ] Cardiac monitoring / telemetry/ECHO Echo report 03/24, daily progress notes [x] Lasix 40 mg Medication on 03/22 [x] Lasix 100 mg IV Medication from 03/22 to 03/24 [ ] AICD [x] Cardiology Consult Consult on 03/25 CDS/Measurement Supervisor Signature: ALLEN Phone #: Date/Time: 03/31/2020 This is a permanent part of the Medical Record [facility]
== END 2020-03-27 18:42 | disposition short-term general hospital (02) | DRG 546 ==
LOC: ERS 16:51 → ERHOLD 20:54
PROVIDERS: ADMIT Specialist; ATTEND Specialist
PROC: 02HV33Z Insertion of Infusion Device into Superior Vena Cava, Percutaneous Approach (ICD-10-PCS; principal; 2020-03-25)
PROC: B548ZZA Ultrasonography of Superior Vena Cava, Guidance (ICD-10-PCS; 2020-03-25)
DX: M06.9 Rheumatoid arthritis, unspecified (principal); E87.1 Hypo-osmolality and hyponatremia; L03.116 Cellulitis of left lower limb; L03.115 Cellulitis of right lower limb; I27.29 Other secondary pulmonary hypertension; K21.9 Gastro-esophageal reflux disease without esophagitis; M81.0 Age-related osteoporosis without current pathological fracture; E03.9 Hypothyroidism, unspecified; M10.9 Gout, unspecified; E78.5 Hyperlipidemia, unspecified; Z98.890 Other specified postprocedural states; Z88.1 Allergy status to other antibiotic agents; Z88.0 Allergy status to penicillin; Z88.2 Allergy status to sulfonamides; Z88.8 Allergy status to other drugs, medicaments and biological substances; Z79.890 Hormone replacement therapy; Z88.6 Allergy status to analgesic agent; Z79.899 Other long term (current) drug therapy; Z74.01 Bed confinement status; I25.10 Atherosclerotic heart disease of native coronary artery without angina pectoris; I35.0 Nonrheumatic aortic (valve) stenosis; I48.0 Paroxysmal atrial fibrillation; G47.00 Insomnia, unspecified; Z20.828 Contact with and (suspected) exposure to other viral communicable diseases; Z79.82 Long term (current) use of aspirin; I50.813 Acute on chronic right heart failure
CPT/HCPCS: 36415; 36569; 71045; 71046; 71275; 80048; 80053; 80061; 80202; 81003; 81015; 82550; 82565; 83605; 83735; 83880; 84443; 84484; 84550; 85025; 87040; 87086; 87635; 93005; 93306; 94640; 96365; 96367; 96375; C1751; C9113; J0692; J1250; J1644; J1940; J2405; J2920; J3370; J3475; J7050; J7611; Q0162; Q9967; U0003

== ENCOUNTER 2020-10-22 13:06 | Outpatient (CLI) | payer MEDICARE, OTHER | END 2020-10-22 13:07 | disposition home or self-care (01) | LOC: BICRAD 13:06 | PROVIDERS: ATTEND Podiatrist | DX: L89.899 Pressure ulcer of other site, unspecified stage (principal) ==

== ENCOUNTER 2021-05-16 05:06 | Inpatient (IN) | payer MEDICARE, OTHER ==
[2021-05-16] MEDS ORDERED: Pantoprazole 40 MG VIAL ONE (05:23)
[2021-05-16 05:54] LABS: #Lymphocytes 0.8 thou/uL (1.20-3.40); #Monocytes 0.7 thou/uL (0.11-0.59); #Neutrophils 8.9 thou/uL (1.40-6.50); %Basophils 0.1 % (0.0-1.0); %Eosinophils 0.1 % (0.0-10.0); %Lymphocytes 7.8 % (21.0-51.0); Hemoglobin 10.4 g/dL (12.0-16.0); Mean Corpuscular HGB CONC 33.7 g/dL (32.0-36.0); Mean Corpuscular Hemoglobin 28.7 pg (27.0-31.0); Mean Corpuscular Volume 85.2 fL (78.0-98.0); Mean Platelet Volume 6.9 fL (7.4-10.4); Platelet Count 338 thou/uL (130-400); RBC Distribution Width 17.1 % (11.5-14.5); Red Blood Cell (RBC) Count 3.63 mill/uL (4.20-5.40); White Blood Cell (WBC) Count 10.5 thou/uL (4.8-10.8)
[2021-05-16 06:05] LABS: INR-International Normal Ratio 1.4; PTT 40.9 sec (22.9-36.1); Prothrombin Time 17.1 sec (12.0-14.7)
[2021-05-16 06:15] LABS: ALT (SGPT) 19 U/L (8-55); AST (SGOT) 22 U/L (5-34); Albumin 3.4 g/dL (3.4-4.8); Alkaline Phosphatase 273 U/L (40-110); Anion Gap 17 mmol/L (10-20); BUN (Urea Nitrogen) 62 mg/dL (9.8-20.1); Bilirubin, Total 0.7 mg/dL (0.2-1.2); Calc. Creatinine Clearance 0 mL/min (70-130); Calcium 9.5 mg/dL (7.8-10.44); Carbon Dioxide 14 mmol/L (23-31); Chloride 112 mmol/L (98-107); Globulin 2.9 g/dL (2.4-3.5); Glucose 100 mg/dL (83-110); Potassium 5.4 mmol/L (3.5-5.1); Protein, Total 6.3 g/dL (5.8-8.1); Sodium 138 mmol/L (136-145)
[2021-05-16 15:39] LABS: Hemoglobin 9.8 g/dL (12.0-16.0); Platelet Count 280 thou/uL (130-400)
[2021-05-16] MEDS ORDERED: Ondansetron ODT 4 MG TAB SL PRN (15:45)
[2021-05-16] MEDS ORDERED: Ondansetron PF 4 MG/2 ML Vial IVP PRN (15:45)
[2021-05-16] MEDS ORDERED: Acetaminophen 325 MG TAB PO PRN (15:45)
[2021-05-16] MEDS ORDERED: Sodium Chloride 0.9% 1,000 ML IV SCH (15:45)
[2021-05-16 16:43] LABS: Bacteria/HPF None Seen HPF (None Seen); Bilirubin Negative (Negative); Blood, Urine Negative (Negative); Clarity Clear (Clear); Glucose, Urine (Dipstick) Normal (Negative); Ketone, Urine Negative (Negative); Leukocyte Negative Leu/uL (Negative); Nitrite Negative (Negative); Protein, Urine (Dipstick) Negative (Neg-Trace); RBC/HPF None Seen HPF (0-3); Specific Gravity, Urine 1.018 (1.002-1.036); Squamous Epithelial None Seen HPF (0-3); Urobilinogen Normal mg/dL (Less than 2); WBC/HPF 0-3 HPF (0-3); pH, Urine 5.5 (5.0-9.0)
[2021-05-16 16:47] VITALS: BMI 18.0
[2021-05-16 19:10] LABS: SARS-CoV-2 NAA Rapid Test Not Detected (NotDetected)
[2021-05-16] MEDS ORDERED: Lorazepam 1 MG TAB PO PRN (19:56)
[2021-05-16] MEDS ORDERED: Albuterol Sulfate 2.5 mg/3 ml Neb NEB PRN (19:58)
[2021-05-16] MEDS ORDERED: Sodium Chloride 0.9% (PF) 10 ML VIAL FS PRN (20:00)
[2021-05-16] MEDS: Dextrose 5 % And 0.9 % NaCl 1,000 ML IV SCH (21:31)
[2021-05-16] MEDS: Pantoprazole 40 MG VIAL IVP SCH (21:32)
[2021-05-16] MEDS: Dronabinol 2.5 MG CAP PO SCH (21:32)
[2021-05-16] MEDS: Icosapent Ethyl 1 GM CAPSULE PO SCH (21:34)
[2021-05-17] MEDS: Levothyroxine Sodium 100 MCG TAB PO SCH (05:57)
[2021-05-17] MEDS: Dextrose 5 % And 0.9 % NaCl 1,000 ML IV SCH ×3 (05:58→20:45)
[2021-05-17 08:42] LABS: Hemoglobin A1c 5.2 % (4.0-6.0)
[2021-05-17 08:43] LABS: #Lymphocytes 1.1 thou/uL (1.20-3.40); #Neutrophils 8.4 thou/uL (1.40-6.50); %Eosinophils 0.2 % (0.0-10.0); %Lymphocytes 10.5 % (21.0-51.0); %Monocytes 9.2 % (0.0-10.0); %Neutrophils 80.1 % (42.0-75.0); Mean Corpuscular HGB CONC 32.9 g/dL (32.0-36.0); Mean Corpuscular Hemoglobin 28.7 pg (27.0-31.0); Mean Corpuscular Volume 87.1 fL (78.0-98.0); Mean Platelet Volume 7.1 fL (7.4-10.4); Platelet Count 284 thou/uL (130-400); RBC Distribution Width 17.2 % (11.5-14.5); Red Blood Cell (RBC) Count 3.47 mill/uL (4.20-5.40); White Blood Cell (WBC) Count 10.4 thou/uL (4.8-10.8)
[2021-05-17 08:55] LABS: Anion Gap 15 mmol/L (10-20); BUN (Urea Nitrogen) 53 mg/dL (9.8-20.1); Calc. Creatinine Clearance 32 mL/min (70-130); Calcium 8.7 mg/dL (7.8-10.44); Carbon Dioxide 14 mmol/L (23-31); Cardiac Risk 3.2 (Less than 4.5); Chloride 116 mmol/L (98-107); Cholesterol 92 mg/dl (< 200 Desired); Glucose 113 mg/dL (83-110); HDL Cholesterol 29 mg/dL (>60 Neg Risk); LDL Cholesterol, Calculated 37 mg/dL; Potassium 4.5 mmol/L (3.5-5.1); Sodium 140 mmol/L (136-145); Triglycerides 130 mg/dL (Less than 150)
[2021-05-17] MEDS: Hydroxychloroquine Sulfate 200 MG TAB PO SCH (09:54)
[2021-05-17] MEDS: Pantoprazole 40 MG VIAL IVP SCH ×2 (09:54→20:45)
[2021-05-17] MEDS: Dronabinol 2.5 MG CAP PO SCH ×2 (09:54→20:46)
[2021-05-17] MEDS: Icosapent Ethyl 1 GM CAPSULE PO SCH ×2 (09:55→20:45)
[2021-05-17] MEDS: Lidocaine 5% Patch TD SCH (18:10)
[2021-05-17] MEDS ORDERED: Artificial Tear Sol 15 ML BOT EA EYE PRN (19:16)
[2021-05-17] MEDS: Ondansetron PF 4 MG/2 ML Vial IVP PRN (20:44)
[2021-05-18] MEDS: Transdermal Patch Removal TOP SCH (05:19)
[2021-05-18] MEDS: Dextrose 5 % And 0.9 % NaCl 1,000 ML IV SCH ×3 (05:19→20:56)
[2021-05-18] MEDS: Levothyroxine Sodium 100 MCG TAB PO SCH (05:19)
[2021-05-18] MEDS: Hydroxychloroquine Sulfate 200 MG TAB PO SCH (10:03)
[2021-05-18] MEDS: Icosapent Ethyl 1 GM CAPSULE PO SCH (10:04)
[2021-05-18] MEDS: Pantoprazole 40 MG VIAL IVP SCH (10:10)
[2021-05-18] MEDS: Dronabinol 2.5 MG CAP PO SCH ×2 (10:11→18:20)
[2021-05-18] MEDS ORDERED: Lidocaine 1% PF 5 ML VIAL ONE (14:09)
[2021-05-18] MEDS ORDERED: PROPOFOL 200 MG/20 ML VIAL ONE (14:09)
[2021-05-18] MEDS ORDERED: Ondansetron HCl/PF 4 MG/2 ML Vial IVP PRN (14:31)
[2021-05-19] MEDS: Pantoprazole 40 MG VIAL IVP SCH ×3 (01:20→21:07)
[2021-05-19] MEDS: Lidocaine 5% Patch TD SCH ×3 (01:20→19:51)
[2021-05-19] MEDS: Dextrose 5 % And 0.9 % NaCl 1,000 ML IV SCH ×2 (05:55→13:09)
[2021-05-19] MEDS: Transdermal Patch Removal TOP SCH (06:24)
[2021-05-19] MEDS: Levothyroxine Sodium 100 MCG TAB PO SCH (06:25)
[2021-05-19] MEDS: Ondansetron PF 4 MG/2 ML Vial IVP PRN (10:30)
[2021-05-19] MEDS: Acetaminophen 650 MG Suppository PR PRN (10:44)
[2021-05-19] MEDS: Hydroxychloroquine Sulfate 200 MG TAB PO SCH (12:23)
[2021-05-19] MEDS: Dronabinol 2.5 MG CAP PO SCH ×2 (14:04→21:07)
[2021-05-19] MEDS ORDERED: Furosemide 20 MG/2 ML VIAL SLOW IVP SCH (16:30)
[2021-05-20] MEDS: Levothyroxine Sodium 100 MCG TAB PO SCH (05:58)
[2021-05-20] MEDS: Transdermal Patch Removal TOP SCH (05:59)
[2021-05-20] MEDS: Pantoprazole 40 MG VIAL IVP SCH ×2 (08:59→20:49)
[2021-05-20] MEDS: Acetaminophen 650 MG Suppository PR PRN ×2 (08:59→18:38)
[2021-05-20] MEDS: Ondansetron PF 4 MG/2 ML Vial IVP PRN (09:00)
[2021-05-20 12:05] LABS: BUN (Urea Nitrogen) 45 mg/dL (9.8-20.1); Calc. Creatinine Clearance 20 mL/min (70-130); Calcium 8.7 mg/dL (7.8-10.44); Chloride 115 mmol/L (98-107); Glucose 63 mg/dL (83-110); Potassium 5.2 mmol/L (3.5-5.1); Sodium 140 mmol/L (136-145)
[2021-05-20] MEDS ORDERED: HYDROcodone/Acetaminophen 5/325 mg Tablet PO PRN (12:05)
[2021-05-20 12:08] LABS: Carbon Dioxide Less than 8 mmol/L (23-31)
[2021-05-20 13:12] LABS: H. pylori IgA ABS Less than 9.0 units (0.0-8.9); H. pylori IgG ABS 0.61 (0.00-0.79); H. pylori IgM ABS Less than 9.0 units (0.0-8.9)
[2021-05-20] MEDS: Hydroxychloroquine Sulfate 200 MG TAB PO SCH (13:24)
[2021-05-20] MEDS: Dronabinol 2.5 MG CAP PO SCH ×2 (13:24→20:49)
[2021-05-20] MEDS: Bisacodyl 10 MG SUPP PR PRN ×2 (13:29→18:39)
[2021-05-20 14:58] LABS: Hemoglobin 10.6 g/dL (12.0-16.0); Mean Corpuscular HGB CONC 29.5 g/dL (32.0-36.0); Mean Corpuscular Hemoglobin 27.4 pg (27.0-31.0); Mean Corpuscular Volume 93.1 fL (78.0-98.0); Mean Platelet Volume 7.7 fL (7.4-10.4); Platelet Count 363 thou/uL (130-400); RBC Distribution Width 19.1 % (11.5-14.5); Red Blood Cell (RBC) Count 3.88 mill/uL (4.20-5.40); White Blood Cell (WBC) Count 25.5 thou/uL (4.8-10.8)
[2021-05-20 15:34] LABS: Anisocytosis SLIGHT = 6-15 cells (100X) (0-5/hpf); Hypochromia SLIGHT = 6-15 cells (100X) (0-5/hpf); Lymphocytes 3 % (21-51); MDiff Complete? YES; Monocytes 10 % (0-10); Neutrophil 87 % (42-75); Platelet Morphology Comment Appears Adequate; Polychromasia SLIGHT = 2-3 cells (100X) (0-2/hpf)
[2021-05-20] MEDS: Sodium Chloride 0.45% 1,000 ML IV SCH ×2 (15:51→20:49)
[2021-05-20] MEDS: Lidocaine 5% Patch TD SCH (18:37)
[2021-05-20] MEDS ORDERED: Mineral Oil ENEMA PR SCH (19:30)
[2021-05-20] MEDS: Docusate 100 MG CAP PO SCH (20:49)
[2021-05-20] MEDS: Icosapent Ethyl 1 GM CAPSULE PO SCH ×2 (21:43→21:44)
[2021-05-21 05:16] VITALS: TEMP 98.7
[2021-05-21] MEDS: Transdermal Patch Removal TOP SCH (05:43)
[2021-05-21] MEDS: Levothyroxine Sodium 100 MCG TAB PO SCH (05:43)
[2021-05-21] MEDS ORDERED: Fleet Enema 133 ML BOT PR SCH (08:00)
[2021-05-21] MEDS ORDERED: cefTRIAXone\\ROCEPHIN 1 GM in Sodium Chloride 0.9% 100 ML IVPB SCH ×2 (08:00→14:45)
[2021-05-21 08:35] VITALS: BP 93/58
[2021-05-21 08:40] LABS: Hemoglobin 10.8 g/dL (12.0-16.0); Mean Corpuscular HGB CONC 29.2 g/dL (32.0-36.0); Mean Corpuscular Volume 95.6 fL (78.0-98.0); Mean Platelet Volume 7.9 fL (7.4-10.4); Platelet Count 410 thou/uL (130-400); RBC Distribution Width 19.1 % (11.5-14.5); Red Blood Cell (RBC) Count 3.87 mill/uL (4.20-5.40); White Blood Cell (WBC) Count 32.4 thou/uL (4.8-10.8)
[2021-05-21 08:44] LABS: BUN (Urea Nitrogen) 63 mg/dL (9.8-20.1); Calc. Creatinine Clearance 14 mL/min (70-130); Chloride 112 mmol/L (98-107); Potassium 5.9 mmol/L (3.5-5.1); Sodium 137 mmol/L (136-145)
[2021-05-21 08:50] LABS: Carbon Dioxide Less than 8 mmol/L (23-31); Glucose 17 mg/dL (83-110)
[2021-05-21] MEDS ORDERED: Dextrose 50% Abboject 50 ML SYRINGE ONE ×2 (08:53→09:26)
[2021-05-21 09:28] LABS: Band 14 % (5-11); Burr Cells MODERATE= 6-15 cells (100X) (0-1/hpf); Lymphocytes 8 % (21-51); MDiff Complete? YES; Monocytes 9 % (0-10); Neutrophil 70 % (42-75); Platelet Morphology Comment Appears Increased; Polychromasia MODERATE = 3-4 cells (100X) (0-2/hpf); Schistocytes SLIGHT = 2-5 cells (100X) (0-1/hpf)
[2021-05-21] MEDS ORDERED: Morphine 4 MG/ML VIAL ONE (09:57)
[2021-05-21] MEDS: Docusate 100 MG CAP PO SCH (10:26)
[2021-05-21] MEDS: Hydroxychloroquine Sulfate 200 MG TAB PO SCH (10:27)
[2021-05-21] MEDS: Dronabinol 2.5 MG CAP PO SCH (10:27)
[2021-05-21 10:42] LABS: Glucose 161 mg/dL (83-110)
[2021-05-21] MEDS ORDERED: Morphine 4 MG/ML VIAL SLOW IVP SCH (10:45)
[2021-05-21] MEDS ORDERED: EPINEPHrine 4 MG in Dextrose 5% in Water 250 ML IV SCH (11:15)
[2021-05-21] MEDS ORDERED: Meropenem 500 MG in Sodium Chloride 0.9% 100 ML IVPB SCH ×2 (11:15→21:00)
[2021-05-21] MEDS: Morphine 4 MG/ML VIAL SLOW IVP PRN ×2 (11:17→17:50)
[2021-05-21] MEDS: Pantoprazole 40 MG VIAL IVP SCH (11:20)
[2021-05-21] MEDS ORDERED: Vancomycin HCl 500 MG in Sodium Chloride 0.9% 100 ML IVPB SCH (12:00)
[2021-05-21] MEDS ORDERED: Meropenem 2 GM in Admixture Fee 1 EACH IVPB SCH (14:00)
[2021-05-21] MEDS ORDERED: Scopolamine 1.5 mg/72 hour Patch TOP SCH (14:45)
[2021-05-21] MEDS: Lidocaine 5% Patch TD SCH (17:32)
[2021-05-21] MEDS: Sodium Chloride 0.45% 1,000 ML IV SCH (17:34)
== END 2021-05-21 21:17 | disposition expired | DRG 380 ==
LOC: ERS 05:06 → ERHOLD 06:43 → SURG B 15:14 → CCU 05-21 09:34
PROVIDERS: ADMIT Specialist; ATTEND Specialist
PROC: 0DJ08ZZ Inspection of Upper Intestinal Tract, Via Natural or Artificial Opening Endoscopic (ICD-10-PCS; principal; 2021-05-18)
DX: K22.11 Ulcer of esophagus with bleeding (principal); A41.9 Sepsis, unspecified organism; R65.21 Severe sepsis with septic shock; L51.1 Stevens-Johnson syndrome; E87.2 Acidosis; E44.0 Moderate protein-calorie malnutrition; Z68.1 Body mass index [BMI] 19.9 or less, adult; K25.4 Chronic or unspecified gastric ulcer with hemorrhage; Z20.822 Contact with and (suspected) exposure to COVID-19; Z66 Do not resuscitate; E03.9 Hypothyroidism, unspecified; R63.0 Anorexia; E86.0 Dehydration; K44.9 Diaphragmatic hernia without obstruction or gangrene; N19 Unspecified kidney failure; K21.00 Gastro-esophageal reflux disease with esophagitis, without bleeding; M81.0 Age-related osteoporosis without current pathological fracture; M06.9 Rheumatoid arthritis, unspecified; I48.91 Unspecified atrial fibrillation; F03.90 Unspecified dementia, unspecified severity, without behavioral disturbance, psychotic disturbance, mood disturbance, and anxiety; Z74.01 Bed confinement status; Z51.5 Encounter for palliative care; Z88.1 Allergy status to other antibiotic agents; Z88.0 Allergy status to penicillin; Z88.2 Allergy status to sulfonamides; Z88.8 Allergy status to other drugs, medicaments and biological substances; Z79.890 Hormone replacement therapy; Z79.899 Other long term (current) drug therapy
CPT/HCPCS: 36415; 36416; 71045; 74022; 80048; 80053; 80061; 81001; 83036; 84443; 84484; 85025; 85610; 85730; 86850; 86900; 86901; 87086; 93005; 96374; C9113; J0696; J1940; J2185; J2270; J2405; J2704; J3370; J3490; J7042; J7050; Q0167; U0002